=== PATIENT | male | born 1935 | race Caucasian/White ===

== ENCOUNTER 2018-05-15 11:56 | Inpatient (IN) ==
[2018-05-15] MEDS ORDERED: Morphine Inj 4 MG/ML Vial IV.PUSH ONE (12:10)
[2018-05-15] MEDS ORDERED: Sodium Chlor 0.9% Inj 500 ML IV.SIG ONE (12:10)
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
[2018-05-15 12:46] LABS: Baso % (Auto) 0.8 % (0.0-2.0); Eos # (Auto) 0.3 th/mm3 (0.0-0.4); Eos % (Auto) 5.6 % (0.0-4.0); Hematocrit 40.3 % (39.0-51.0); Hemoglobin 13.6 gm/dL (13.0-17.0); Lymph # (Auto) 1.2 th/mm3 (1.0-4.8); Lymph % (Auto) 21.6 % (9.0-44.0); Mean Corpuscular HGB Conc 33.8 % (32.0-36.0); Mean Corpuscular Volume 94.5 fL (80.0-100.0); Mean Platelet Volume 9.9 fL (7.0-11.0); Mono # (Auto) 0.6 th/mm3 (0.0-0.9); Mono % (Auto) 9.9 % (0.0-8.0); Neut # (Auto) 3.5 th/mm3 (1.8-7.7); Neut % (Auto) 62.1 % (16.0-70.0); Platelet Count 168 th/mm3 (150-450); Red Blood Count 4.26 mil/mm3 (4.50-5.90); Red Cell Distribution Width 12.7 % (11.6-17.2); White Blood Count 5.7 th/mm3 (4.0-11.0)
[2018-05-15 12:53] LABS: Activated Partial Thrombo Time 21.5 sec (23.4-31.7); Prothrombin Time 10.3 sec (9.8-11.6)
--- NOTE | 2018-05-15 13:04 | XR ---
EXAM DATE: 05/15/2018 1:01 PM EST AGE/SEX: 83 years / Male INDICATIONS: Patient fell today. CLINICAL DATA: This is the patient's initial encounter. Patient reports that signs and symptoms have been present for 1 day and indicates a pain score of 10/10. MEDICAL/SURGICAL HISTORY: . Hypertension. Kidney disease. AAA. Prostate caner. TIA. Gallbladder disease. Appendectomy. Cholecystectomy. Pacemaker. Bilateral knee replacement. Cervical spine. . Joan endectomy. Cholecystectomy. Pacemaker. Bilateral knee replacement. Cervical spine . COMPARISON: [facility], CHEST 1V SINGLE AP, 04/14/2018. . FINDINGS: Spine view of the chest demonstrates a dual lead cardiac pacer. Heart size appears normal with stable tortuosity of the thoracic aorta. Lungs are clear. Osseous structures demonstrate degenerative choi e. CONCLUSION: The lungs are clear. Electronically signed by: Marycarmen Lan MD Board Certified Radiologist 05/15/2018 1:03 PM EST
[2018-05-15 13:13] LABS: Alanine Aminotransferase 26 U/L (12-78); Albumin 3.5 g/dL (3.4-5.0); Alkaline Phosphatase 56 U/L (45-117); Anion Gap 8 meq/L (5-15); Blood Urea Nitrogen 28 mg/dL (7-18); Calcium 8.7 mg/dL (8.5-10.1); Carbon Dioxide 24.3 meq/L (21.0-32.0); Chloride 106 meq/L (98-107); Glomerular Filtration Rate 41 mL/min (>89); Glucose,Random 94 mg/dL (74-106); Sodium 138 meq/L (136-145); Thyroid Stimulating Hormone 0.951 uIU/mL (0.358-3.740); Total Protein 6.8 g/dL (6.4-8.2)
[2018-05-15 13:14] LABS: Aspartate Aminotransferase 32 U/L (15-37); Creatine Kinase 113 U/L (39-308); Magnesium 2.1 mg/dL (1.5-2.5); Potassium 4.6 meq/L (3.5-5.1)
--- NOTE | 2018-05-15 13:21 | CT ---
EXAM DATE: 05/15/2018 1:17 PM EST AGE/SEX: 83 years / Male INDICATIONS: Trauma; fall. CLINICAL DATA: This is the patient's initial encounter. Patient reports that signs and symptoms have been present for 1 day and indicates a pain score of 3/10. MEDICAL/SURGICAL HISTORY: Transient ischemic attack. Hypertension. Fusion, cervical. RADIATION DOSE: 33.58 CTDI (mGy) COMPARISON: [facility], CT HEAD W/O CONTRAST, 04/14/2018. C, CT BRAIN W/O CONTRAST, 10/10/2017. . TECHNIQUE: CT of the head without contrast. Using automated exposure control and adjustment of the mA and/or kV according to patient size, radiation dose was kept as low as reasonably achievable to ob tain optimal diagnostic quality images. DICOM format image data is available electronically for revi ew and comparison. FINDINGS: Cerebrum: The ventricles are normal for age. No evidence of midline shift, mass lesion, hemorrhage or acute infarction. No extraaxial fluid collections are seen. Posterior Fossa: The cerebellum and brainstem are intact. The 4th ventricle is midline. The cerebe llopontine angle is unremarkable. Extracranial: The visualized portion of the orbits is intact. Skull: The calvaria is intact. No evidence of skull fracture. CONCLUSION: 1. Negative CT Head non contrast. . Electronically signed by: Marycarmen Lan MD Board Certified Radiologist 05/15/2018 1:20 PM EST
--- NOTE | 2018-05-15 13:22 | XR ---
EXAM DATE: 05/15/2018 1:03 PM EST AGE/SEX: 83 years / Male INDICATIONS: Patient fell today. CLINICAL DATA: This is the patient's initial encounter. Patient reports that signs and symptoms have been present for 1 day and indicates a pain score of 10/10. MEDICAL/SURGICAL HISTORY: . Hypertension. Kidney disease. AAA. Prostate caner. TIA. Gallbladder disease. Appendectomy. Cholecystectomy. Pacemaker. Bilateral knee replacement. Cervical spine. . Joan endectomy. Cholecystectomy. Pacemaker. Bilateral knee replacement. Cervical spine . COMPARISON: [facility], XR HIP W/ AP PELVIS, BILATERAL, 02/25/2018. . FINDINGS: Multiple views of the right femur demonstrate a comminuted fracture through the trochanter. This appe ars nondisplaced. Bones are osteopenic. Radiopaque beads identified within the prostate and intact to arie right knee prosthesis. No additional fractures are seen. CONCLUSION: Nondisplaced comminuted right intertrochanteric fracture. Electronically signed by: Marycarmen Lan MD Board Certified Radiologist 05/15/2018 1:21 PM EST
--- NOTE | 2018-05-15 13:24 | XR ---
EXAM DATE: 05/15/2018 1:05 PM EST AGE/SEX: 83 years / Male INDICATIONS: Hypertension. Kidney disease. AAA. Prostate caner. TIA. Gallbladder disease. Appendecto my. Cholecystectomy. Pacemaker. Bilateral knee replacement. Cervical spine. . Appendectomy. Cholecyst ectomy. Pacemaker. Bilateral knee replacement. Cervical spine CLINICAL DATA: This is the patient's initial encounter. Patient reports that signs and symptoms have been present for 1 day and indicates a pain score of 10/10. MEDICAL/SURGICAL HISTORY: . . COMPARISON: [facility], FEMUR RIGHT 2V, 05/15/2018. [facility], XR HIP W/ AP PELVIS, BILATERAL, 02/25/2018. [facility], CT ABDOMEN W/O CONTRAST, 08/08/2016. . FINDINGS: Single view of the pelvis demonstrates a comminuted nondisplaced fracture of the right intertrochante padma region. Bones are osteopenic. Radial opaque beads overlie the prostate. Vascular graft material i s seen within the common iliac arteries and aorta. CONCLUSION: Nondisplaced comminuted fracture involving the right intertrochanteric region. Electronically signed by: Marycarmen Lan MD Board Certified Radiologist 05/15/2018 1:22 PM EST
--- NOTE | 2018-05-15 13:27 | CT ---
EXAM DATE: 05/15/2018 1:22 PM EST AGE/SEX: 83 years / Male INDICATIONS: Trauma; fall, neck pain. CLINICAL DATA: This is the patient's initial encounter. Patient reports that signs and symptoms have been present for 1 day and indicates a pain score of 4/10. MEDICAL/SURGICAL HISTORY: Transient ischemic attack. Hypertension. Fusion, cervical. Pacemake r. RADIATION DOSE: 15.46 CTDI (mGy) COMPARISON: [facility], CT CERVICAL SPINE W/O CONTRAST, 10/10/2017. [facility], MR CERVICAL SPINE W AND W/O CO NTRAST, 05/23/2014. . TECHNIQUE: Contiguous axial images were obtained using helical multirow detector technique. The vol umetric data was post-processed with multiplanar reconstruction in oblique axial, sagittal, and coron al planes. Using automated exposure control and adjustment of the mA and/or kV according to patient s ize, radiation dose was kept as low as reasonably achievable to obtain optimal diagnostic quality barbra ges. DICOM format image data is available electronically for review and comparison. FINDINGS: Vertebrae: Vertebral bodies demonstrate no evidence of fracture or dislocation. Stable appearance of fixation hardware anteriorly at C4/C5 with osseous fusion seen from C2 through C7. Severe degenerati ve disc change at C7/T1 and T1/T2. Alignment: Normal. No subluxation. Severe uncovertebral joint hypertrophy and facet degenerative changes are seen throughout the cervica l spine with multiple levels of significant osseous neuroforaminal narrowing. No visible disc protrus ion. Soft tissues are normal. CONCLUSION: 1. No evidence of fracture. 2. 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 Electronically signed by: Marycarmen Lan MD Board Certified Radiologist 05/15/2018 1:26 PM EST
[2018-05-15] MEDS ORDERED: Bisacodyl 10 MG Supp RECTAL PRN (14:05)
--- NOTE | 2018-05-15 14:41 | P.HPIM ---
History of Present Illness Chief Complaint: Hip pain History of Present Illness: 83-year-old gentleman brought to the emergency room status post fall today with injury to right hip. Patient states he was in his normal state of health about to go out with his and ambulating through the living room got dizzy and fell, hitting his head on the edge of the coffee table. He states he has frequent episodes of dizziness, there is no loss of consciousness, he was unable to stand due to severe right hip pain. Patient was found in the emergency room to have a right hip intratrochanteric fracture. He denies recent illness nausea vomiting fever chills shortness of breath chest pain. PMhx: Hypertension, dyslipidemia, atrial fibrillation, sick sinus syndrome, stroke, prostate cancer, severe degenerative disc disease with chronic back pain , AAA, CKD, states takes divalproex for nite terrors PSXhx: Angiographic repair of abdominal aortic aneurysm, permanent pacemaker, bilateral knee replacement, cholecystectomy, cervical spine SOChx: Denies tobacco, denies alcohol, lives at home with , ambulates with walker FAMhx: Denies premature cardiac disease stroke or cancer Inpatient Certification Inpatient Certification: I certify that the inpatient services were ordered in accordance with Medicare regulations governing the order. This includes certification that hospital inpatient services are reasonable and necessary and in the case of services not specified as inpatient-only under 42 CFR 419.22(n), that they are appropriately provided as inpatient services in accordance to with the 2-midnight benchmark under 43 CFR 412.3(e) Estimated Total Length of Stay (Days): 2 Plans for Post Hospital Care: Other acute care hospital Review of Systems Review of Systems: all other systems reviewed are negative [facility] Medical History Medical History Aortic aneurysm (Acute) Hypertension (Acute) Kidney disease (Acute) Pacemaker (Acute) Prostate cancer (Acute) TIA (transient ischemic attack) (Acute) Surgical History Surgical History H/O neck surgery (Acute) Family History Family History Mother Unknown cause of morbidity or mortality Father Unknown cause of morbidity or mortality Social History Social History Substance History: No History of Abuse Second Hand Smoke Exposure: No Smoking Status: Never smoker How Often Do You Have a Drink Containing Alcohol: Never Recent Travel in [place] within the Last 8 Weeks: No Recent Out of Country Travel within the Last 8 Weeks: No Immunization History Tetanus Immunization: <5 Years Medications and Allergies Allergies Allergy/AdvReac Type Severity Reaction Status Date / Time No Known Allergies Allergy Verified 05/15/18 12:03 Home Medications Medication Instructions Recorded Confirmed Type Adults Multivitamin 1 tab PO DAILY 01/07/18 05/15/18 History apixaban [Eliquis] 2.5 mg PO BID 01/07/18 05/15/18 History benazepril 5 mg PO DAILY 01/07/18 05/15/18 History divalproex 250 mg PO DAILY 01/07/18 05/15/18 History donepezil 10 mg PO HS 01/07/18 05/15/18 History hydrocodone-acetaminophen 1 tab PO BID PRN 01/07/18 05/15/18 History cholecalciferol (vitamin D3) 2,000 unit PO DAILY 02/03/18 05/15/18 History [Vitamin D3] clonazepam 0.5 mg PO HS 02/03/18 05/15/18 History Active Medications: Active Medications Acetaminophen (Tylenol) 650 mg PO Q4H PRN PRN Reason: Temp > 100.4 Hydrocodone Bitart/Acetaminophen ([place] 7.5/325) 1 tab PO BID PRN PRN Reason: Chronic Pain 6-10 Al Hydroxide/Mg Hydroxide (Milk Of Magnesia Liq) 30 ml PO Q12H PRN PRN Reason: Mild Constipation Bisacodyl (Dulcolax Supp) 10 mg RECTAL DAILY PRN PRN Reason: SEVERE CONSITIPATION Clonazepam (Klonopin) 0.5 mg PO HS [facility] Divalproex Sodium (Depakote Er) 250 mg PO DAILY [facility] Lactulose (Lactulose Liq) 30 ml PO DAILY PRN PRN Reason: SEVERE CONSITIPATION Morphine Sulfate (Morphine Inj) 2 mg IV.PUSH Q3H PRN PRN Reason: PAIN 1-10 AND/OR FEVER >101F Non-Formulary Medication (Benazepril) 5 mg PO DAILY [facility] Non-Formulary Medication (Cholecalciferol (Vitamin D3) [Vitamin D3]) 2,000 unit PO DAILY [facility] Non-Formulary Medication (Donepezil [Donepezil]) 10 mg PO HS [facility] Non-Formulary Medication (Adults Multivitamin) 1 tab PO DAILY [facility] Ondansetron HCl (Zofran Inj) 4 mg IV.PUSH Q6H PRN PRN Reason: NAUSEA OR VOMITING Senna/Docusate Sodium (Salma-Colace) 1 tab PO BID [facility] Sennosides (Senokot) 17.2 mg PO Q12H PRN PRN Reason: Moderate Constipation Sodium Chloride (Ns Flush) 2 ml IV.FLUSH BID [facility] Sodium Chloride (Ns Flush) 2 ml IV.FLUSH PRN PRN PRN Reason: FLUSH AFTER USING IV ACCESS Physical Exam Vital signs: Vital Signs 05/15/18 12:03 Temperature 98.0 F Pulse Rate 82 Respiratory Rate 20 Blood Pressure 131/75 Pulse Oximetry 97 Intake & Output 05/14/18 05/15/18 05/15/18 18:59 06:59 18:59 Intake Total 500 / 500 Balance 500 / 500 Weight 61.235 kg Intake: IV 500 / 500 NS Inj 500 ML @ Wide Open IV. 500 / 500 SIG BOLUS ONE Rx#:[id number] Narrative: GEN well-developed well-nourished frail appearing 83-year-old white male awake alert oriented to person time and place, pleasant in no acute distress HEENT normocephalic atraumatic, other than mild abrasion to right inner ear, pupils equal reactive, sclerae anicteric, extraocular motion intact, mucosa is dry, posterior pharynx no exudate, no other gum lip dental lesions noted NECK supple no JVD trachea midline thyroid smooth not enlarged ANT CHEST WALL without mass or tenderness to palpation permanent pacemaker in place without fluctuance or tenderness HEART S1-S2 regular without murmur gallops or clicks, heart sounds are distant LUNGS clear to auscultation without wheeze rales or rhonchi, full symmetric expansion BACK exam is no CVA tenderness or mass ABDOMEN soft nondistended positive bowel sounds no guarding rebound rigidity LYMPH NODES no cervical, axillary or inguinal adenopathy noted EXTREMITIES no clubbing cyanosis or significant edema, peripheral pulses palpable +2, right lower extremity shortened, right hip severe tenderness to palpation NEUROLOGIC cranial nerves II through XII appear grossly intact, unable to examine right lower extremity due to severe pain, moving left lower extremity with 4 out of 5 strength, no clonus rigidity SKIN warm and dry with good turgor, no other rash or sores noted Results Labs CBC & Chem 7: 05/15/18 12:21 05/15/18 12:21 Imaging Impressions Cervical Spine CT 05/15/18 12:10 CONCLUSION: 1. No evidence of fracture. 2. 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 Chest X-Ray 05/15/18 12:10 CONCLUSION: The lungs are clear. Femur X-Ray 05/15/18 12:10 CONCLUSION: Nondisplaced comminuted right intertrochanteric fracture. Head CT 05/15/18 12:10 CONCLUSION: 1. Negative CT Head non contrast. . Pelvis X-Ray 05/15/18 12:10 CONCLUSION: Nondisplaced comminuted fracture involving the right intertrochanteric region. Caprini VTE Risk Assessment Caprini VTE Risk Assessment: Moderate/High Risk (score >= 2) Caprini Risk Assessment Model: Point Value = 1 Point Value = 2 Point Value = 3 Point Value = 5 Age 41-60 Minor surgery BMI > 25 kg/m2 Swollen legs Varicose veins or History of unexplained or recurrent spontaneous Oral contraceptives or hormone replacement Sepsis (< 1 month) Serious lung disease, including pneumonia (< 1 month) Abnormal pulmonary function Acute myocardial infarction Congestive heart failure (< 1 month) History of inflammatory bowel disease Medical patient at bed rest Age 61-74 Arthroscopic surgery Major open surgery (> 45 min) Laparoscopic surgery (> 45 min) Malignancy Confined to bed (> 72 hours) Immobilizing plaster cast Central venous access Age >= 75 History of VTE Family history of VTE Factor V Leiden Prothrombin [id number] Lupus anticoagulant Anticardiolipin antibodies Elevated serum homocysteine Heparin-induced thrombocytopenia Other congenital or acquired thrombophilia Stroke (< 1 month) Elective arthroplasty Hip, pelvis, or leg fracture Acute spinal cord injury (< 1 month) Prophylaxis Regimen: Total Risk Factor Score Risk Level Prophylaxis Regimen 0-1 Low Early ambulation 2 Moderate Order ONE of the following: *Sequential Compression Device (SCD) *Heparin 5000 units SQ BID 3-4 Higher Order ONE of the following medications: *Heparin 5000 units SQ TID *Enoxaparin/Lovenox 40 mg SQ daily (WT < 150 kg, CrCl > 30 mL/min) *Enoxaparin/Lovenox 30 mg SQ daily (WT < 150 kg, CrCl > 10-29 mL/min) *Enoxaparin/Lovenox 30 mg SQ BID (WT < 150 kg, CrCl > 30 mL/min) AND/OR *Sequential Compression Device (SCD) 5 or more Highest Order ONE of the following medications: *Heparin 5000 units SQ TID (Preferred with Epidurals) *Enoxaparin/Lovenox 40 mg SQ daily (WT < 150 kg, CrCl > 30 mL/min) *Enoxaparin/Lovenox 30 mg SQ daily (WT < 150 kg, CrCl > 10-29 mL/min) *Enoxaparin/Lovenox 30 mg SQ BID (WT < 150 kg, CrCl > 30 mL/min) AND *Sequential Compression Device (SCD) Assessment and Plan Plan FALL w dizziness - possible orthostatic, gentle fluids and monitor pressures R INTERTROCHANTERIC FX - pain control, ortho consult ,hold eliquis, AFIB w SSS and PPM - hold eliquis HTN uncontrolled due to pain - cont home meds CKD III - stable DYSLIPIDEMIA CHRONIC BACK PAIN w ddd - cont pain contrl fu w ortho MCI mild on aricept dvt prophylaxis - scd dispo - to rehab when stable.
[2018-05-15] MEDS: Senna/Docusate Sodium 8.6/50 MG Tablet PO SCH (21:00)
[2018-05-15] MEDS: clonazePAM 0.5 MG Tablet PO SCH (23:54)
[2018-05-16] MEDS: Lisinopril 5 MG Tablet PO SCH (00:32)
[2018-05-16] MEDS ORDERED: Chlorhexidine Gluconate 2% 1 Pack (2 Cloths) TOPICAL ONE (01:57)
[2018-05-16] MEDS ORDERED: Sodium Chlor 0.9% Inj 500 ML IV.SIG SCH (02:00)
[2018-05-16] MEDS: Morphine Sulfate Inj 2 MG/ML Vial IV.PUSH PRN ×2 (02:40→20:10)
[2018-05-16 06:10] LABS: Activated Partial Thrombo Time 28.6 sec (23.4-31.7); INR 1.1 Ratio; Prothrombin Time 10.7 sec (9.8-11.6)
--- NOTE | 2018-05-16 07:50 | P.CONOP ---
[facility] Orthopedics Consult Note - [facility] Consult date: 05/16/18 Chief complaint: Right hip fracture, dizziness Narrative: The patient is a 83-year-old male with multiple medical problems. He lives with his . He became dizzy yesterday resulting in a fall hitting his right hip and his head. He is brought to [facility] where x-rays revealed intertrochanteric fracture of the right hip. CT of the head did were not reveal any major abnormality. He was admitted to the medical service. For his cardiac condition he is on Eliquis. The last dose was Thursday night. Patient denies problems with the upper extremities or left lower extremity. He has ongoing pain in the right hip. Review of Systems All other systems reviewed negative except as stated in [facility] PMFSH - History History Provided By: Patient, Family Member - Medical History Medical History: Medical History (Last Reviewed 05/16/18 @ 07:46 by Papo Cantu MD) Aortic aneurysm Hypertension Kidney disease Pacemaker Prostate cancer TIA (transient ischemic attack) - Surgical History Surgical History: Surgical History (Last Reviewed 05/16/18 @ 07:46 by Papo Cantu MD) H/O neck surgery - Family History Family History: Family History (Last Reviewed 05/16/18 @ 07:46 by Papo Cantu MD) Mother Unknown cause of morbidity or mortality Father Unknown cause of morbidity or mortality - Tobacco History Second Hand Smoke Exposure: No Smoking Status: Never smoker - Alcohol History How Often Do You Have a Drink Containing Alcohol: Never - Substance Use History Substance History: No History of Abuse - Travel History Recent Travel in the [facility] Within the Last 8 Weeks: No Recent Travel Out of the Country Within the Last 8 Weeks: No - Immunization History Tetanus Immunization: <5 Years Hx Influenza Vaccine This Season: Yes Medications and Allergies Active Medications: Active Medications Acetaminophen (Tylenol) 650 mg PO Q4H PRN PRN Reason: Temp > 100.4 Hydrocodone Bitart/Acetaminophen ([place] 7.5/325) 1 tab PO BID PRN PRN Reason: Chronic Pain 6-10 Al Hydroxide/Mg Hydroxide (Milk Of Magnesia Liq) 30 ml PO Q12H PRN PRN Reason: Mild Constipation Bisacodyl (Dulcolax Supp) 10 mg RECTAL DAILY PRN PRN Reason: SEVERE CONSITIPATION Clonazepam (Klonopin) 0.5 mg PO HS [facility] Last Admin: 05/15/18 23:54 Dose: Not Given Cyclobenzaprine HCl (Flexeril) 5 mg PO Q8HR [facility] Last Admin: 05/15/18 23:56 Dose: 5 mg Divalproex Sodium (Depakote Er) 250 mg PO DAILY [facility] Donepezil HCl (Aricept) 10 mg PO [facility] Last Admin: 05/15/18 21:00 Dose: Not Given Lactated Ringer's (Lr 1000 Ml Inj) 1,000 mls @ 30 mls/hr IV.SIG .Q24H [facility] Stop: 05/17/18 01:59 Sodium Chloride (Ns Inj) 500 mls @ 30 mls/hr IV.SIG .Q10H [facility] Lactulose (Lactulose Liq) 30 ml PO DAILY PRN PRN Reason: SEVERE CONSITIPATION Lisinopril (Prinivil) 5 mg PO [facility] Last Admin: 05/16/18 00:32 Dose: Not Given Miscellaneous (Pill Splitter) 1 each OTHER UNSCH PRN PRN Reason: SEE LABEL COMMENTS Morphine Sulfate (Morphine Inj) 2 mg IV.PUSH Q3H PRN PRN Reason: PAIN 1-10 AND/OR FEVER >101F Last Admin: 05/16/18 02:40 Dose: 2 mg Multivitamins (Theragran) 1 tab PO DAILY [facility] Ondansetron HCl (Zofran Inj) 4 mg IV.PUSH Q6H PRN PRN Reason: NAUSEA OR VOMITING Senna/Docusate Sodium (Salma-Colace) 1 tab PO BID [facility] Last Admin: 05/15/18 21:00 Dose: Not Given Sennosides (Senokot) 17.2 mg PO Q12H PRN PRN Reason: Moderate Constipation Sodium Chloride (Ns Flush) 2 ml IV.FLUSH BID [facility] Last Admin: 05/15/18 21:00 Dose: 2 ml Sodium Chloride (Ns Flush) 2 ml IV.FLUSH PRN PRN PRN Reason: FLUSH AFTER USING IV ACCESS Vitamin D (Vitamin D3) 2,000 unit PO DAILY [facility] Last Admin: 05/15/18 15:37 Dose: Not Given Allergies Allergy/AdvReac Type Severity Reaction Status Date / Time No Known Allergies Allergy Verified 05/15/18 12:03 Home Medications Medication Instructions Recorded Confirmed Type Adults Multivitamin 1 tab PO DAILY 01/07/18 05/15/18 History apixaban [Eliquis] 2.5 mg PO BID 01/07/18 05/15/18 History benazepril 5 mg PO DAILY 01/07/18 05/15/18 History divalproex 250 mg PO DAILY 01/07/18 05/15/18 History donepezil 10 mg PO HS 01/07/18 05/15/18 History hydrocodone-acetaminophen 1 tab PO BID PRN 01/07/18 05/15/18 History cholecalciferol (vitamin D3) 2,000 unit PO DAILY 02/03/18 05/15/18 History [Vitamin D3] clonazepam 0.5 mg PO HS 02/03/18 05/15/18 History Exam Vital signs: Vital Signs 05/15/18 12:03 05/15/18 14:00 05/15/18 15:41 Temperature 98.0 F Pulse Rate 82 66 60 Respiratory Rate 20 18 18 Blood Pressure 131/75 195/85 H 132/88 Pulse Oximetry 97 96 97 05/15/18 18:08 05/15/18 19:35 05/15/18 23:30 Temperature 98.7 F 100.4 F H 98.7 F Pulse Rate 71 67 60 Respiratory Rate 16 19 18 Blood Pressure 173/78 H 155/74 H 186/80 H Pulse Oximetry 91 L 94 L 92 L 05/16/18 02:24 05/16/18 04:45 Temperature 97.3 F L 97.5 F L Pulse Rate 63 60 Respiratory Rate 19 18 Blood Pressure 155/65 H 169/71 H Pulse Oximetry 98 Intake & Output 05/15/18 05/16/18 05/16/18 18:59 06:59 18:59 Intake Total 500 / 500 60 / 60 Output Total 200 / 200 Balance 500 / 500 -140 / -140 Weight 61.235 kg 61.2 kg Intake: IV 500 / 500 NS Inj 500 ML @ Wide Open IV. 500 / 500 SIG BOLUS ONE Rx#:[id number] Oral 60 / 60 Output: Urine 200 / 200 Other: Post Void Residual 250 Date of Last Bowel Movement 05/14/18 # Bowel Movements 0 Narrative: The patient's is at the bedside He is alert oriented appropriate with mild lethargy Bilateral upper extremities intact Left lower extremity nontender throughout Right lower extremity is shortened and externally rotated He has tenderness about the right hip Right knee and ankle are nontender Bilateral calves are soft with a negative Homans sign He has good distal capillary refill Integument examinations intact He is able to slightly flex and extend his toes He reports sensation intact in his toes Results - Labs Result Diagrams: 05/15/18 12:21 05/15/18 12:21 Labs: Laboratory Results - last 24 hr 05/15/18 05/15/18 05/15/18 12:21 12:21 12:21 WBC 5.7 RBC 4.26 L Hgb 13.6 Hct 40.3 MCV 94.5 MCH 32.0 MCHC 33.8 RDW 12.7 Plt Count 168 MPV 9.9 Neut % (Auto) 62.1 Lymph % (Auto) 21.6 [place] % (Auto) 9.9 H Eos % (Auto) 5.6 H Baso % (Auto) 0.8 Neut # (Auto) 3.5 Lymph # (Auto) 1.2 [place] # (Auto) 0.6 Eos # (Auto) 0.3 Baso # (Auto) 0.0 WBC Differential . Differential Comment Auto diff final PT 10.3 INR 1.0 APTT 21.5 L Sodium 138 Potassium 4.6 Chloride 106 Carbon Dioxide 24.3 Anion Gap 8 BUN 28 H Creatinine 1.60 H Estimated GFR 41 L Random Glucose 94 Calcium 8.7 Magnesium 2.1 Total Bilirubin 0.5 AST 32 ALT 26 Alkaline Phosphatase 56 Total Creatine Kinase 113 CK-MB (CK-2) 2.0 Troponin I Less than 0.02 L Total Protein 6.8 Albumin 3.5 TSH 0.951 05/16/18 05:47 WBC RBC Hgb Hct MCV MCH MCHC RDW Plt Count MPV Neut % (Auto) Lymph % (Auto) [place] % (Auto) Eos % (Auto) Baso % (Auto) Neut # (Auto) Lymph # (Auto) [place] # (Auto) Eos # (Auto) Baso # (Auto) WBC Differential Differential Comment PT 10.7 INR 1.1 APTT 28.6 D Sodium Potassium Chloride Carbon Dioxide Anion Gap BUN Creatinine Estimated GFR Random Glucose Calcium Magnesium Total Bilirubin AST ALT Alkaline Phosphatase Total Creatine Kinase CK-MB (CK-2) Troponin I Total Protein Albumin TSH - Diagnostic results Imaging: Impressions Cervical Spine CT 05/15/18 12:10 CONCLUSION: 1. No evidence of fracture. 2. 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 Chest X-Ray 05/15/18 12:10 CONCLUSION: The lungs are clear. Femur X-Ray 05/15/18 12:10 CONCLUSION: Nondisplaced comminuted right intertrochanteric fracture. Head CT 05/15/18 12:10 CONCLUSION: 1. Negative CT Head non contrast. . Pelvis X-Ray 05/15/18 12:10 CONCLUSION: Nondisplaced comminuted fracture involving the right intertrochanteric region. Assessment and Plan - Problem List (1) Closed intertrochanteric fracture of right femur Code(s): S72.141A - Displaced intertrochanteric fracture of right femur, initial encounter for closed fracture Status: Acute Qualifiers: Encounter type: initial encounter Fracture alignment: nondisplaced Qualified Code(s): S72.144A - Nondisplaced intertrochanteric fracture of right femur, initial encounter for closed fracture Plan: His condition was discussed and the options of treatment were discussed. His fracture pattern is unstable intertrochanteric fracture. Therefore, recommend open reduction internal fixation. The options of internal fixation reviewed. The recommendation is intramedullary rodding with a trochanteric nail. The patient's last dose of Eliquis was on Thursday night. He may have a slightly increased risk of bleeding with pressing on with surgery today but it has already been a day and a half and he probably is having internal bleeding at the fracture site at any rate. Therefore, recommend pressing on with open reduction internal fixation at this time. The possible need for blood transfusion was discussed. The risk benefits and alternatives of treatment were thoroughly discussed. Including discussion was the risk of infection, injury to nerves blood vessel need for blood transfusion anesthetic complication medical complications and unforeseen possible complications. We also discussed the possibility mechanical complications and need for revision surgery. All of his questions and his 's questions were answered. They wished to press on with surgery. A detailed informed consent was obtained. I also will request a qualified nurse practitioner to assist in the operating room. A mid level provider in my office, nurse practitioner or PA, may see this patient on a follow up basis and continue to implement the plan including: starting or adjusting medications, injections of muscle, tendons, bursa or joints, cast application, orthotic or brace application, physical therapy, further radiographic studies including X-ray, MRI, CT, ultrasound or bone scan , vascular studies, neurological studies, or other specialist consultations, and proceeding with surgical management as appropriate.
[2018-05-16] MEDS ORDERED: Lisinopril 5 MG Tablet PO SCH (09:00)
[2018-05-16] MEDS ORDERED: Post-op Orders (for Pharmacy) OTHER STA (11:08)
--- NOTE | 2018-05-16 11:10 | XR ---
EXAM DATE: 05/16/2018 11:07 AM EST AGE/SEX: 83 years / Male INDICATIONS: ORIF RIGHT HIP. CLINICAL DATA: This is the patient's initial encounter. Patient reports that signs and symptoms have been present for 1 day and indicates a pain score of Nonresponsive. MEDICAL/SURGICAL HISTORY: Non-responsive. Non-responsive. COMPARISON: No prior exams available for comparison. FINDINGS: 3 views of the right hip demonstrate prior ORIF of a intratrochanteric fracture. The orthopedic hardw are is in excellent position. The alignment is excellent. There is no evidence of complication. CONCLUSION: Excellent alignment of the hip fracture post reduction and hardware placement. Electronically signed by: Cali Leyva MD Board Certified Radiologist 05/16/2018 11:09 AM EST
--- NOTE | 2018-05-16 11:22 | P.OP ---
- Preoperative Diagnosis (1) Closed intertrochanteric fracture of right femur - Postoperative Diagnosis (1) Closed intertrochanteric fracture of right femur Date of procedure: 05/16/18 Procedure: Right hip open reduction internal fixation using Synthes short trochanteric nail Anesthesia: ZOEY Surgeon: Papo Cantu MD Roll Up Operator: Jono Peoples Estimated blood loss (mL): 50 Operation and Findings: The patient was brought the operating room. He is placed under general anesthesia. He was placed on a well-padded fracture table. The right hip was prepped and draped in usual sterile fashion. IV antibiotics were given. Timeout was completed. Fluoroscopy was used to help determine planned incision. Incision made superior and lateral to the greater trochanter. Hemostasis obtained with use electrocautery. The subcuticular subcutaneous and fascial layer were all traversed. The tip of the trochanter was palpated. The guide was used to align the guidepin to the tip of the trochanter and this was advanced and confirmed to be in excellent position AP and lateral plane. We then used the reamer to overreamed this. We selected 11 mm justina. The justina was impacted into place. Overall bony alignment looks very good. Closed reduction at the beginning the operation with traction and rotation of the limb had been performed so the bone was lined up. We now position the hardware into position. We used the outrigger device and a separate incision laterally and drilled another guidepin to the lateral cortex in good position AP and lateral plane. This was then overreamed and 100 mm flange nail was placed locking this through the right first nail. We rotationally lock this then compress the fracture site. We then used the outrigger device for placement of our distal locking screw. We irrigated out. We closed with absorbable suture. [place] on the skin. Steri-Strips applied. The patient was awoken returned to recovery room in stable condition. The business development assistant is an advanced registered nurse practitioner. His skill set was medically necessary for the performance of the operation.
[2018-05-16] MEDS ORDERED: ceFAZolin 2 GM Premix Inj 2 GM/50 ML PIGGYBACK IV.SIG ONE (11:31)
[2018-05-16 12:29] LABS: Bilirubin,Urine Negative (Negative); Clarity,Urine Clear (Clear); Color,Urine Yellow (Yellw/Straw); Glucose,Urine (UA) Negative (Negative); Leukocyte Esterase,Urine Negative (Negative); Mucus,Urine Few /lpf (Occasional); Nitrite,Urine Negative (Negative); Specific Gravity,Urine 1.017 (1.002-1.035)
--- NOTE | 2018-05-16 12:49 | P.PNIM ---
Subjective Interval history: Patient seen and examined this morning. Afebrile vital signs stable. He is status post open reduction internal fixation of his right hip. Currently he is arousable but immediately falls back to sleep. Physical Exam Vital signs: Vital Signs 05/15/18 14:00 05/15/18 15:41 05/15/18 18:08 Temperature 98.7 F Pulse Rate 66 60 71 Respiratory Rate 18 18 16 Blood Pressure 195/85 H 132/88 173/78 H Pulse Oximetry 96 97 91 L 05/15/18 19:35 05/15/18 23:30 05/16/18 02:24 Temperature 100.4 F H 98.7 F 97.3 F L Pulse Rate 67 60 63 Respiratory Rate 19 18 19 Blood Pressure 155/74 H 186/80 H 155/65 H Pulse Oximetry 94 L 92 L 05/16/18 04:45 05/16/18 07:48 05/16/18 11:05 Temperature 97.5 F L 97.1 F L 98 F Pulse Rate 60 59 L 62 Respiratory Rate 18 18 23 Blood Pressure 169/71 H 176/73 H 119/55 L Pulse Oximetry 98 100 97 05/16/18 11:15 05/16/18 11:30 05/16/18 11:45 Temperature 98.2 F Pulse Rate 62 63 66 Respiratory Rate 21 23 17 Blood Pressure 108/54 L 123/59 L 123/72 Pulse Oximetry 99 99 99 05/16/18 12:00 05/16/18 12:44 Temperature 97.4 F L Pulse Rate 66 65 Respiratory Rate 18 18 Blood Pressure 136/64 132/63 Pulse Oximetry 99 98 Intake & Output 05/15/18 05/16/18 05/16/18 18:59 06:59 18:59 Intake Total 500 / 500 60 / 60 600 / 600 Output Total 200 / 200 500 / 500 Balance 500 / 500 -140 / -140 100 / 100 Weight 61.235 kg 61.2 kg Intake: IV 500 / 500 NS Inj 500 ML @ Wide Open IV. 500 / 500 [facility] Rx#:[id number] Oral 60 / 60 Anesthesia Amount 600 / 600 Output: Urine 200 / 200 Estimated Blood Loss 50 / 50 Urine Amount (Catheter) 450 / 450 Straight 450 / 450 Other: Post Void Residual 250 Date of Last Bowel Movement 05/14/18 05/14/18 # Bowel Movements 0 Narrative: GEN: Well-developed, well-nourished elderly male patient. No acute distress. CV: Irregular rate and rhythm without obvious murmurs LUNGS: Clear to auscultation bilaterally. Normal respiratory effort. No wheezes , rales, rhonchi. GI: Soft, nontender, nondistended. No palpable masses. Bowel sounds WNL. EXT: No edema. Ice pack in place against the right hip dressing in place status post open reduction internal fixation NEURO/PSYCH: Afocal. Awake, alert, and oriented x3. Appropriate insight and judgment. - Urinary Catheter Management Straight Cath placed during this visit: no Results - Labs CBC & Chem 7: 05/15/18 12:21 05/15/18 12:21 Laboratory Results - last 24 hr 05/15/18 05/15/18 05/15/18 12:21 12:21 12:21 WBC 5.7 RBC 4.26 L Hgb 13.6 Hct 40.3 MCV 94.5 MCH 32.0 MCHC 33.8 RDW 12.7 Plt Count 168 MPV 9.9 Neut % (Auto) 62.1 Lymph % (Auto) 21.6 [place] % (Auto) 9.9 H Eos % (Auto) 5.6 H Baso % (Auto) 0.8 Neut # (Auto) 3.5 Lymph # (Auto) 1.2 [place] # (Auto) 0.6 Eos # (Auto) 0.3 Baso # (Auto) 0.0 WBC Differential . Differential Comment Auto diff final PT 10.3 INR 1.0 APTT 21.5 L Sodium 138 Potassium 4.6 Chloride 106 Carbon Dioxide 24.3 Anion Gap 8 BUN 28 H Creatinine 1.60 H Estimated GFR 41 L Random Glucose 94 Calcium 8.7 Magnesium 2.1 Total Bilirubin 0.5 AST 32 ALT 26 Alkaline Phosphatase 56 Total Creatine Kinase 113 CK-MB (CK-2) 2.0 Troponin I Less than 0.02 L Total Protein 6.8 Albumin 3.5 TSH 0.951 Urine Color Urine Clarity Urine pH Ur Specific [place] Urine Protein Urine Glucose (UA) Urine Ketones Urine Occult Blood Urine Nitrate Urine Bilirubin Urine Urobilinogen Ur Leukocyte Esterase Urine RBC Urine WBC Urine Mucus Micro UA Comment Ur Microscopic Review Urine Culture Comments Blood Type Antibody Screen 05/16/18 05/16/18 05/16/18 05:47 07:20 12:05 WBC RBC Hgb Hct MCV MCH MCHC RDW Plt Count MPV Neut % (Auto) Lymph % (Auto) [place] % (Auto) Eos % (Auto) Baso % (Auto) Neut # (Auto) Lymph # (Auto) [place] # (Auto) Eos # (Auto) Baso # (Auto) WBC Differential Differential Comment PT 10.7 INR 1.1 APTT 28.6 D Sodium Potassium Chloride Carbon Dioxide Anion Gap BUN Creatinine Estimated GFR Random Glucose Calcium Magnesium Total Bilirubin AST ALT Alkaline Phosphatase Total Creatine Kinase CK-MB (CK-2) Troponin I Total Protein Albumin TSH Urine Color Yellow Urine Clarity Clear Urine pH 5.0 Ur Specific [place] 1.017 Urine Protein Negative Urine Glucose (UA) Negative Urine Ketones Trace H Urine Occult Blood Negative Urine Nitrate Negative Urine Bilirubin Negative Urine Urobilinogen Less than 2 Ur Leukocyte Esterase Negative Urine RBC Less than 1 Urine WBC Less than 1 Urine Mucus Few H Micro UA Comment Cath-culture not ind Ur Microscopic Review Not Reportable Urine Culture Comments Cath-cult not ind Blood Type O Negative Antibody Screen Negative - Imaging Impressions Cervical Spine CT 05/15/18 12:10 CONCLUSION: 1. No evidence of fracture. 2. 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 Chest X-Ray 05/15/18 12:10 CONCLUSION: The lungs are clear. Femur X-Ray 05/15/18 12:10 CONCLUSION: Nondisplaced comminuted right intertrochanteric fracture. Head CT 05/15/18 12:10 CONCLUSION: 1. Negative CT Head non contrast. . Pelvis X-Ray 05/15/18 12:10 CONCLUSION: Nondisplaced comminuted fracture involving the right intertrochanteric region. Hip X-Ray 05/16/18 00:00 CONCLUSION: Excellent alignment of the hip fracture post reduction and hardware placement. Assessment and Plan - Assessment (1) Closed intertrochanteric fracture of right femur Code(s): S72.141A - Displaced intertrochanteric fracture of right femur, initial encounter for closed fracture Status: Acute (2) Syncope Code(s): R55 - Syncope and collapse Status: Acute - Plan FALL w dizziness - possible orthostatic, gentle fluids and monitor pressures R INTERTROCHANTERIC FX - pain control, ortho consult ,hold eliquis, status post open reduction internal fixation on 05/16/18 AFIB w SSS and PPM - hold eliquis HTN uncontrolled due to pain - cont home meds CKD III - stable DYSLIPIDEMIA CHRONIC BACK PAIN w ddd - cont pain contrl fu w ortho MCI mild on aricept dvt prophylaxis - scd dispo - to rehab when stable. Code Status: Full code Discharge Planning: Pending orthopedic clearance likely will require skilled nurse facility versus inpatient rehab (1) Closed intertrochanteric fracture of right femur Qualifiers: Encounter type: initial encounter Fracture alignment: nondisplaced Qualified Code(s): S72.144A - Nondisplaced intertrochanteric fracture of right femur, initial encounter for closed fracture (2) Syncope Qualifiers: Syncope type: unspecified Qualified Code(s): R55 - Syncope and collapse
--- NOTE | 2018-05-16 15:07 | ECG ---
Date Performed: 05/15/2018 Time Performed: 13:21:23 PTAGE: 83 years EKG: ELECTRONIC ATRIAL PACEMAKER LEFT VENTRICULAR HYPERTROPHY AND ST-T CHANGE ABNORMAL ECG Since PREVIOUS TRACING , no significant change noted PREVIOUS TRACIN04/14/2018 11.17.2016 DOCTOR: Grant Alcantar Interpretating Date/Time 05/16/2018 15:06:38
[2018-05-16] MEDS: Senna/Docusate Sodium 8.6/50 MG Tablet PO SCH (15:44)
[2018-05-16] MEDS: Sod Chloride 0.9% Inj 1,000 ML IV.CONT SCH (15:46)
[2018-05-16] MEDS: Divalproex 250 MG ER Tablet PO SCH (18:28)
[2018-05-16] MEDS: ceFAZolin 2 GM Premix Inj 2 GM/50 ML PIGGYBACK IV.SIG SCH (18:55)
[2018-05-16 21:05] LABS: ABG Base Excess -0.3 mmol/L (-2-2); ABG PCO2 35 mmHg (38-42); ABG PO2 81 mmHg (61-120)
[2018-05-16] MEDS ORDERED: Enoxaparin Inj 40 MG/0.4 ML Syringe SQ SCH (23:00)
[2018-05-17] MEDS: Senna/Docusate Sodium 8.6/50 MG Tablet PO SCH ×3 (00:55→22:22)
[2018-05-17] MEDS: Lisinopril 5 MG Tablet PO SCH ×2 (00:55→22:22)
[2018-05-17] MEDS: clonazePAM 0.5 MG Tablet PO SCH (00:58)
[2018-05-17] MEDS: ceFAZolin 2 GM Premix Inj 2 GM/50 ML PIGGYBACK IV.SIG SCH ×2 (01:01→09:55)
[2018-05-17] MEDS ORDERED: Ketorolac Inj 30 MG/ML (IVP) Vial IV.PUSH ONE (03:44)
[2018-05-17] MEDS: Sod Chloride 0.9% Inj 1,000 ML IV.CONT SCH (07:47)
--- NOTE | 2018-05-17 08:12 | P.PNOP ---
Subjective Interval history: Patient lethargic family at bedside Physical Exam Vital signs: Vital Signs 05/16/18 11:05 05/16/18 11:15 05/16/18 11:30 Temperature 98 F Pulse Rate 62 62 63 Respiratory Rate 23 21 23 Blood Pressure 119/55 L 108/54 L 123/59 L Pulse Oximetry 97 99 99 05/16/18 11:45 05/16/18 12:00 05/16/18 12:44 Temperature 98.2 F 97.4 F L Pulse Rate 66 66 65 Respiratory Rate 17 18 18 Blood Pressure 123/72 136/64 132/63 Pulse Oximetry 99 99 98 05/16/18 16:00 05/16/18 19:20 05/17/18 00:15 Temperature 99.7 F H 99.3 F 99.3 F Pulse Rate 71 63 63 Respiratory Rate 18 19 19 Blood Pressure 125/73 161/69 H 120/82 Pulse Oximetry 95 98 97 05/17/18 05:50 Temperature 97.8 F Pulse Rate 60 Respiratory Rate 19 Blood Pressure 136/61 Pulse Oximetry 97 Intake & Output 05/16/18 05/17/18 05/17/18 18:59 06:59 18:59 Intake Total 600 / 600 1160 / 1160 Output Total 500 / 500 Balance 100 / 100 1160 / 1160 Weight 61.1 kg Intake: IV 1100 / 1100 NS Inj 1,000 ML @ 84 mls/hr IV. 1000 / 1000 CONT .[id number] [facility] Rx#:[id number] Ancef 2 GM Premix Inj 2 gm In 100 / 100 50 ml @ 100 mls/hr IV.SIG Q8H [facility] Rx#:[id number] Oral 60 / 60 Anesthesia Amount 600 / 600 Output: Estimated Blood Loss 50 / 50 Urine Amount (Catheter) 450 / 450 Straight 450 / 450 Other: # Urine Diapers 1 Date of Last Bowel Movement 05/14/18 # Bowel Movements 0 Narrative: right hip dressing in place calve soft NVI - Urinary Catheter Management Straight Cath placed during this visit: no Results - Labs CBC & Chem 7: 05/15/18 12:21 05/15/18 12:21 Laboratory Results - last 24 hr 05/16/18 05/16/18 05/16/18 07:20 12:05 20:53 Puncture Site Left radial Patient Temperature 98.6 O2 Saturation 94 ABG pH 7.44 H ABG pCO2 35 L ABG pO2 81 ABG HCO3 23 ABG O2 Content 12.1 ABG Base Excess -0.3 ABG Methemoglobin 1.3 Ronak Test Present Hemoglobin 9.1 L Carboxyhemoglobin 1.5 O2 Delivery Device Nasal cannula Liter Flow 2.00 Critical Value No Urine Color Yellow Urine Clarity Clear Urine pH 5.0 Ur Specific [place] 1.017 Urine Protein Negative Urine Glucose (UA) Negative Urine Ketones Trace H Urine Occult Blood Negative Urine Nitrate Negative Urine Bilirubin Negative Urine Urobilinogen Less than 2 Ur Leukocyte Esterase Negative Urine RBC Less than 1 Urine WBC Less than 1 Urine Mucus Few H Micro UA Comment Cath-culture not ind Ur Microscopic Review Not Reportable Urine Culture Comments Cath-cult not ind Blood Type O Negative Antibody Screen Negative - Imaging Impressions Hip X-Ray 05/16/18 00:00 CONCLUSION: Excellent alignment of the hip fracture post reduction and hardware placement. Assessment and Plan - Problem List (1) Closed intertrochanteric fracture of right femur Code(s): S72.141A - Displaced intertrochanteric fracture of right femur, initial encounter for closed fracture Status: Acute Qualifiers: Encounter type: subsequent encounter Fracture alignment: nondisplaced Qualified Code(s): S72.144A - Nondisplaced intertrochanteric fracture of right femur, initial encounter for closed fracture Plan: POD#1 Right troch Nail Defer medical management of lethargy to medical service Weight bearing as tolerated Currently order Lovenox but Ok to resume Eliquis Monitor A mid level provider in my office, nurse practitioner or PA, may see this patient on a follow up basis and continue to implement the plan including: starting or adjusting medications, injections of muscle, tendons, bursa or joints, cast application, orthotic or brace application, physical therapy, further radiographic studies including X-ray, MRI, CT, ultrasound or bone scan , vascular studies, neurological studies, or other specialist consultations, and proceeding with surgical management as appropriate.
[2018-05-17] MEDS: Divalproex 250 MG ER Tablet PO SCH (09:52)
--- NOTE | 2018-05-17 15:22 | P.PNIM ---
Subjective Interval history: Patient laying down in bed. He is lethargic. Physical Exam Vital signs: Vital Signs 05/16/18 16:00 05/16/18 19:20 05/17/18 00:15 Temperature 99.7 F H 99.3 F 99.3 F Pulse Rate 71 63 63 Respiratory Rate 18 19 Blood Pressure 125/73 161/69 H 120/82 Pulse Oximetry 95 98 97 05/17/18 05:50 05/17/18 08:00 05/17/18 12:00 Temperature 97.8 F 97.6 F 98.4 F Pulse Rate 60 64 64 Respiratory Rate 19 18 20 Blood Pressure 136/61 158/71 H 145/77 H Pulse Oximetry 97 100 99 Intake & Output 05/16/18 05/17/18 05/17/18 18:59 06:59 18:59 Intake Total 600 / 600 1160 / 1160 50 / 50 Output Total 500 / 500 Balance 100 / 100 1160 / 1160 50 / 50 Weight 61.1 kg Intake: IV 1100 / 1100 50 / 50 NS Inj 1,000 ML @ 84 mls/hr IV. 1000 / 1000 CONT .[id number] [facility] Rx#:[id number] Ancef 2 GM Premix Inj 2 gm In 100 / 100 50 / 50 50 ml @ 100 mls/hr IV.SIG Q8H [facility] Rx#:[id number] Oral 60 / 60 Anesthesia Amount 600 / 600 Output: Estimated Blood Loss 50 / 50 Urine Amount (Catheter) 450 / 450 Straight 450 / 450 Other: # Urine Diapers 1 Date of Last Bowel Movement 05/14/18 # Bowel Movements 0 Narrative: General patient laying down in bed. Minimally responsive to my questions and commands. HEENT extraocular movements are intact, clear oropharyngeal mucosa, no JVD Cardiovascular S1-S2 audible, RRR, no murmurs rubs or gallops Respiratory clear to auscultation bilaterally Abdomen soft, nontender, nondistended, normal bowel sounds Extremities patient does move all 4 of his extremities, 2+ distal pulses. Patient does wince in pain during evaluation of his right hip. Neuro patient can move all 4 extremities, sensation appears to be intact bilaterally. Patient is minimally responsive to my questions and commands, he is lethargic. - Urinary Catheter Management Straight Cath placed during this visit: no Results - Labs CBC & Chem 7: 05/15/18 12:21 05/15/18 12:21 Laboratory Results - last 24 hr 05/16/18 20:53 Puncture Site Left radial Patient Temperature 98.6 O2 Saturation 94 ABG pH 7.44 H ABG pCO2 35 L ABG pO2 81 ABG HCO3 23 ABG O2 Content 12.1 ABG Base Excess -0.3 ABG Methemoglobin 1.3 Ronak Test Present Hemoglobin 9.1 L Carboxyhemoglobin 1.5 O2 Delivery Device Nasal cannula Liter Flow 2.00 Critical Value No Assessment and Plan - Assessment (1) Closed intertrochanteric fracture of right femur Code(s): S72.141A - Displaced intertrochanteric fracture of right femur, initial encounter for closed fracture Status: Acute (2) Syncope Code(s): R55 - Syncope and collapse Status: Acute - Plan This patient is an 83-year-old male with a past medical history of hypertension , dyslipidemia, atrial fibrillation on anticoagulation, sick sinus syndrome, documented AAA, chronic kidney disease, chronic back pain. Patient presented after suffering a ground-level fall at home. Acute Encephalopathy As per the nurse the patient has been encephalopathic over the past 2 days. He is lethargic and minimally responsive to my questions and commands. Patient's family is at bedside and state that prior to his admission and shortly after admission the patient was completely alert and oriented. He was receiving p.o. Benadryl as well as morphine and Depakote. As per the patient's he was not taking Depakote prior to admission. Depakote, Klonopin, Benadryl have been stopped. Continue neurochecks CT head ordered. An MRI was ordered yesterday however the patient has a pacemaker and cannot get the MRI. Will hold Lovenox, Eliquis will be started if the CT scan of the head is negative. Ammonia level ordered. Follow-up a.m. labs. IV fluids adjusted to D5 half NS. If the patient's mental status does not improve by tomorrow, neurology will be consulted. Consider NG tube tomorrow if the patient does not have improvement in his encephalopathy. 1. Right intertrochanteric fracture status post right trochanteric nail Patient is postop day 1. Weightbearing as tolerated Continue physical therapy Orthopedics is okay with restarting the patient on Eliquis Eliquis will be restarted today, pending CT scan of the head. PT evaluation pending, patient will likely need physical therapy at a custodial facility. 2. Atrial fibrillation Heart rate under control We will restart Eliquis if CT scan of the head is negative. 3. CKD stage III Serum creatinine is currently at baseline. Continue to monitor kidney function, avoid nephrotoxic agents. 4. Hypertension Blood pressure currently under control. Continue lisinopril, will adjust medications as needed. DVT prophylaxis, patient is currently on Eliquis. (1) Closed intertrochanteric fracture of right femur Qualifiers: Encounter type: subsequent encounter Fracture alignment: nondisplaced Qualified Code(s): S72.144A - Nondisplaced intertrochanteric fracture of right femur, initial encounter for closed fracture (2) Syncope Qualifiers: Syncope type: unspecified Qualified Code(s): R55 - Syncope and collapse
[2018-05-17] MEDS: Dextrose 5%/NaCl 0.45% Inj 1,000 ML IV.CONT SCH (15:51)
--- NOTE | 2018-05-17 18:44 | CT ---
EXAM DATE: 05/17/2018 6:39 PM EST AGE/SEX: 83 years / Male INDICATIONS: Altered mental status. CLINICAL DATA: This is the patient's initial encounter. Patient reports that signs and symptoms have been present for 1 day and indicates a pain score of 0/10. MEDICAL/SURGICAL HISTORY: Hypertension. Cardiovascular disease. Carcinoma, prostatic. Pacemaker. Fusion, cervical. RADIATION DOSE: 34.45 CTDI (mGy) COMPARISON: [facility] [place], 05/15/[place]. . TECHNIQUE: CT of the head without contrast. Using automated exposure control and adjustment of the mA and/or kV according to patient size, radiation dose was kept as low as reasonably achievable to ob tain optimal diagnostic quality images. DICOM format image data is available electronically for revi ew and comparison. FINDINGS: There is motion artifact. Cerebrum: The ventricles are prominent consistent with atrophy. Areas of low-density in the white ma tter. No evidence of midline shift, mass lesion, hemorrhage or acute infarction. No extraaxial fluid collections are seen. Posterior Fossa: The cerebellum and brainstem are intact. The 4th ventricle is midline. The cerebe llopontine angle is unremarkable. Extracranial: The visualized portion of the orbits is intact. Skull: The calvaria is intact. No evidence of skull fracture. CONCLUSION: 1. Cerebral atrophy and chronic ischemic small vessel vasculopathy. 2. No acute intracranial abnormality. . Electronically signed by: Narendra Mendoza MD Board Certified Radiologist 05/17/2018 6:43 PM EST
[2018-05-18 06:28] LABS: Baso % (Auto) 0.6 % (0.0-2.0); Eos # (Auto) 0.7 th/mm3 (0.0-0.4); Eos % (Auto) 10.7 % (0.0-4.0); Hematocrit 23.8 % (39.0-51.0); Lymph # (Auto) 1.1 th/mm3 (1.0-4.8); Mean Corpuscular HGB Conc 33.5 % (32.0-36.0); Mean Corpuscular Hemoglobin 31.5 pg (27.0-34.0); Mean Platelet Volume 9.9 fL (7.0-11.0); Mono # (Auto) 0.6 th/mm3 (0.0-0.9); Mono % (Auto) 9.6 % (0.0-8.0); Neut # (Auto) 4.1 th/mm3 (1.8-7.7); Neut % (Auto) 62.1 % (16.0-70.0); Platelet Count 105 th/mm3 (150-450); Red Blood Count 2.53 mil/mm3 (4.50-5.90); Red Cell Distribution Width 12.9 % (11.6-17.2); White Blood Count 6.6 th/mm3 (4.0-11.0)
[2018-05-18 07:00] LABS: Alanine Aminotransferase 11 U/L (12-78); Albumin 2.6 g/dL (3.4-5.0); Alkaline Phosphatase 43 U/L (45-117); Anion Gap 7 meq/L (5-15); Aspartate Aminotransferase 25 U/L (15-37); Blood Urea Nitrogen 34 mg/dL (7-18); Calcium 9.1 mg/dL (8.5-10.1); Carbon Dioxide 24.8 meq/L (21.0-32.0); Chloride 114 meq/L (98-107); Glomerular Filtration Rate 42 mL/min (>89); Glucose,Random 115 mg/dL (74-106); Magnesium 2.2 mg/dL (1.5-2.5); Potassium 5.4 meq/L (3.5-5.1); Sodium 146 meq/L (136-145); Total Protein 5.5 g/dL (6.4-8.2)
--- NOTE | 2018-05-18 07:45 | P.PNOP ---
Subjective Interval history: Patient resting. Son at bedside. Physical Exam Vital signs: Vital Signs 05/17/18 08:00 05/17/18 12:00 05/17/18 16:00 Temperature 97.6 F 98.4 F 97.9 F Pulse Rate 64 64 60 Respiratory Rate 18 20 22 Blood Pressure 158/71 H 145/77 H 172/72 H Pulse Oximetry 100 99 100 05/17/18 20:00 05/17/18 20:09 05/17/18 23:09 Temperature 97.8 F 97.5 F L Pulse Rate 69 63 Respiratory Rate 18 18 18 Blood Pressure 182/77 H 173/72 H Pulse Oximetry 100 100 05/18/18 03:55 Temperature 97.8 F Pulse Rate 60 Respiratory Rate 18 Blood Pressure 155/67 H Pulse Oximetry 97 Intake & Output 05/17/18 05/18/18 05/18/18 18:59 06:59 18:59 Intake Total 950 / 950 480 / 480 Output Total 200 / 200 Balance 950 / 950 280 / 280 Weight 61.1 kg Intake: IV 950 / 950 NS Inj 1,000 ML @ 84 mls/hr IV. 900 / 900 CONT .[id number] [facility] Rx#:[id number] Ancef 2 GM Premix Inj 2 gm In 50 / 50 50 ml @ 100 mls/hr IV.SIG Q8H [facility] Rx#:[id number] Oral 480 / 480 Output: Urine Amount (Catheter) 200 / 200 Condom 200 / 200 Other: Date of Last Bowel Movement 05/17/18 # Bowel Movements 0 Narrative: Right hip dressing C/D/I ecchymosis noted calves soft - Urinary Catheter Management Straight Cath placed during this visit: no Condom Cath placed during this visit: no Results - Labs CBC & Chem 7: 05/18/18 06:10 05/18/18 06:10 Laboratory Results - last 24 hr 05/17/18 05/18/18 05/18/18 15:58 06:10 06:10 WBC 6.6 RBC 2.53 L Hgb 8.0 L Hct 23.8 L MCV 94.0 MCH 31.5 MCHC 33.5 RDW 12.9 Plt Count 105 L D MPV 9.9 Neut % (Auto) 62.1 Lymph % (Auto) 17.0 [place] % (Auto) 9.6 H Eos % (Auto) 10.7 H Baso % (Auto) 0.6 Neut # (Auto) 4.1 Lymph # (Auto) 1.1 [place] # (Auto) 0.6 Eos # (Auto) 0.7 H Baso # (Auto) 0.0 WBC Differential . Differential Comment Auto diff final Sodium 146 H Potassium 5.4 H Chloride 114 H Carbon Dioxide 24.8 Anion Gap 7 BUN 34 H Creatinine 1.58 H Estimated GFR 42 L Random Glucose 115 H Calcium 9.1 Magnesium 2.2 Total Bilirubin 0.4 AST 25 ALT 11 L Alkaline Phosphatase 43 L Ammonia 17 Total Protein 5.5 L D Albumin 2.6 L - Imaging Impressions Head CT 05/17/ 00:00 CONCLUSION: 1. Cerebral atrophy and chronic ischemic small vessel vasculopathy. 2. No acute intracranial abnormality. . Assessment and Plan - Problem List (1) Closed intertrochanteric fracture of right femur Code(s): S72.141A - Displaced intertrochanteric fracture of right femur, initial encounter for closed fracture Status: Acute Qualifiers: Encounter type: subsequent encounter Fracture alignment: nondisplaced Qualified Code(s): S72.144A - Nondisplaced intertrochanteric fracture of right femur, initial encounter for closed fracture Plan: POD#2 Right troch Nail Medical management Physical therapy - Weight bearing as tolerated Currently order Lovenox but Ok to resume Eliquis D/C planning - anticipating SNF vs Home with C F/U in [address] Cantu or HUGH in office Monitor
[2018-05-18] MEDS: Acetaminophen 325 MG Tablet PO PRN (09:10)
[2018-05-18] MEDS: Senna/Docusate Sodium 8.6/50 MG Tablet PO SCH ×2 (09:26→21:07)
[2018-05-18] MEDS: Dextrose 5%/NaCl 0.45% Inj 1,000 ML IV.CONT SCH ×2 (10:00→22:00)
--- NOTE | 2018-05-18 11:33 | P.PNIM ---
Subjective Interval history: f/u; encephalopathy in no acute distress. still very lethargic. d/w the RN. family at the bedside. Physical Exam Vital signs: Vital Signs 05/17/18 12:00 05/17/18 16:00 05/17/18 20:00 Temperature 98.4 F 97.9 F Pulse Rate 64 60 Respiratory Rate 20 22 18 Blood Pressure 145/77 H 172/72 H Pulse Oximetry 99 100 05/17/18 20:09 05/17/18 23:09 05/18/18 03:55 Temperature 97.8 F 97.5 F L 97.8 F Pulse Rate 69 63 60 Respiratory Rate 18 18 18 Blood Pressure 182/77 H 173/72 H 155/67 H Pulse Oximetry 100 100 97 05/18/18 09:16 Temperature 97.7 F Pulse Rate 60 Respiratory Rate 17 Blood Pressure 147/67 H Pulse Oximetry 98 Intake & Output 05/17/18 05/18/18 05/18/18 18:59 06:59 18:59 Intake Total 950 / 950 480 / 480 1000 / 1000 Output Total 200 / 200 Balance 950 / 950 280 / 280 1000 / 1000 Weight 61.1 kg Intake: IV 950 / 950 1000 / 1000 D5W/1/2 NS Inj 1,000 ML @ 84 1000 / 1000 mls/hr IV.CONT .[id number] [facility] Rx# :[id number] NS Inj 1,000 ML @ 84 mls/hr IV. 900 / 900 CONT .[id number] [facility] Rx#:[id number] Ancef 2 GM Premix Inj 2 gm In 50 / 50 50 ml @ 100 mls/hr IV.SIG Q8H [facility] Rx#:[id number] Oral 480 / 480 Output: Urine Amount (Catheter) 200 / 200 Condom 200 / 200 Other: Date of Last Bowel Movement 05/17/18 # Bowel Movements 0 Constitutional no acute distress Routine Respiratory Exam Present CTA bilaterally Routine Cardiovascular Exam Present RRR Routine Abdominal Exam Present soft Routine Extremities Exam Comments: no pedal edema. Routine Neurological Exam very lethargic. Urinary Catheter Management Straight: Cath placed during this visit: no Condom: Cath placed during this visit: no Results Labs CBC & Chem 7: 05/18/18 06:10 05/18/18 06:10 Imaging Imaging: Impressions Head CT 05/17/18 00:00 CONCLUSION: 1. Cerebral atrophy and chronic ischemic small vessel vasculopathy. 2. No acute intracranial abnormality. . Assessment and Plan (1) Closed intertrochanteric fracture of right femur: Code(s): S72.141A - Displaced intertrochanteric fracture of right femur, initial encounter for closed fracture Status: Acute (2) Syncope: Code(s): R55 - Syncope and collapse Status: Acute Plan A/P Acute Encephalopathy As per the nurse the patient has been encephalopathic over the past 2 days. He is lethargic and minimally responsive to my questions and commands. Patient's family is at bedside and state that prior to his admission and shortly after admission the patient was completely alert and oriented. He was receiving p.o. Benadryl as well as morphine and Depakote. As per the patient's he was not taking Depakote prior to admission. Depakote, Klonopin, Benadryl have been stopped. Continue neurochecks CT head with no acute abnormality. An MRI was ordered yesterday however the patient has a pacemaker and cannot get the MRI. is back on Eliquis. IV fluids adjusted to D5 half NS. consult Neurology. will place NG tube in am if no improvement in his mental condition. 1. Right intertrochanteric fracture status post right trochanteric nail Weightbearing as tolerated Continue physical therapy Orthopedics is okay with restarting the patient on Eliquis . PT evaluation pending, patient will likely need physical therapy at a prison facility. 2. Atrial fibrillation Heart rate under control Eliquis restarted. 3. CKD stage III Serum creatinine is currently at baseline. Continue to monitor kidney function, avoid nephrotoxic agents. 4. Hypertension Blood pressure currently under control. Continue lisinopril, will adjust medications as needed. Discharge Planning: SNF when stable. Progress Note: Quality VTE Deep Vein Thrombosis/Pulmonary Embolism Present on Admission: No _ (1) Closed intertrochanteric fracture of right femur Qualifiers: Encounter type: subsequent encounter Fracture alignment: nondisplaced Fracture healing: Qualified Code(s): S72.144A - Nondisplaced intertrochanteric fracture of right femur, initial encounter for closed fracture (2) Syncope Qualifiers: Encounter type: Syncope type: unspecified Qualified Code(s): R55 - Syncope and collapse
--- NOTE | 2018-05-18 14:48 | P.CONNEU ---
History of Present Illness Service: Neurology Primary Care Provider: Trey Duran MD Chief Complaint: Confusion History of Present Illness: 83-year-old male admitted to 06/02/2018 after having a fall hip fracture. At hip operation postop has been lethargic confused. Family is no symptom to go in and out of alertness. Seen by neurology early 04/2018 syncope. He also the neurologist is having a lot of sleep attacks. 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 In addition to mild fluctuating cognition at times more recently orthostatic hypotension. There is no history of hallucinations. 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 He was on Depakote for spells this medication was recently discontinued. Review of Systems All other systems reviewed negative except as stated in HPI PMFSH - History History Provided By: Patient, Family Member - Medical History Medical History: Medical History (Last Reviewed 05/18/18 @ 07:41 by Yenny Rossi) Aortic aneurysm Hypertension Kidney disease Pacemaker Prostate cancer TIA (transient ischemic attack) - Surgical History Surgical History: Surgical History (Last Reviewed 05/18/18 @ 07:41 by Yenny Rossi) H/O neck surgery - Family History Family History: Family History (Last Reviewed 05/18/18 @ 07:41 by Yenny Rossi) Mother Unknown cause of morbidity or mortality Father Unknown cause of morbidity or mortality - Tobacco History Second Hand Smoke Exposure: No Smoking Status: Never smoker - Alcohol History How Often Do You Have a Drink Containing Alcohol: Never - Substance Use History Substance History: No History of Abuse - Travel History Recent Travel in the [place] Within the Last 8 Weeks: No Recent Travel Out of the Country Within the Last 8 Weeks: No - Immunization History Tetanus Immunization: <5 Years Hx Influenza Vaccine This Season: Yes Medications and Allergies Active Medications: Active Medications Acetaminophen (Tylenol) 650 mg PO Q4H PRN PRN Reason: Temp > 100.4 Last Admin: 05/18/18 09:10 Dose: 650 mg Hydrocodone Bitart/Acetaminophen ([place] 5/325) 1 tab PO Q3H PRN PRN Reason: Pain Scale 3-10 Al Hydroxide/Mg Hydroxide (Milk Of Magnkatia Liq) 30 ml PO Q12H PRN PRN Reason: Mild Constipation Apixaban (Eliquis) 2.5 mg PO BID [facility] Last Admin: 05/18/18 09:10 Dose: 2.5 mg Bisacodyl (Dulcolax Supp) 10 mg RECTAL DAILY PRN PRN Reason: SEVERE CONSITIPATION Cyclobenzaprine HCl (Flexeril) 5 mg PO Q8HR [facility] Last Admin: 05/17/18 14:21 Dose: Not Given Donepezil HCl (Aricept) [address] [facility] Last Admin: 05/17/18 22:28 Dose: 10 mg Enoxaparin Sodium (Lovenox Inj) 40 mg SQ Q24H [facility] Last Admin: 05/17/18 00:57 Dose: 40 mg Sodium Chloride (Ns Inj) 500 mls @ 30 mls/hr IV.SIG .Q10H [facility] Last Admin: 05/16/18 11:01 Dose: Not Given Dextrose/Sodium Chloride (D5w//2 Ns Inj) 1,000 mls @ 84 mls/hr IV.CONT .[id number] [facility] Last Admin: 05/18/18 10:00 Dose: 84 mls/hr Lactulose (Lactulose Liq) 30 ml PO DAILY PRN PRN Reason: SEVERE CONSITIPATION Lisinopril (Prinivil) [address] [facility] Last Admin: 05/17/18 22:22 Dose: 5 mg Miscellaneous (Pill Splitter) 1 each OTHER UNSCH PRN PRN Reason: SEE LABEL COMMENTS Morphine Sulfate (Morphine Inj) 2 mg IV.PUSH Q3H PRN PRN Reason: PAIN 1-10 AND/OR FEVER >101F Last Admin: 05/16/18 20:10 Dose: 2 mg Multivitamins (Theragran) 1 tab PO DAILY [facility] Last Admin: 05/18/18 09:09 Dose: 1 tab Ondansetron HCl (Zofran Inj) 4 mg IV.PUSH Q6H PRN PRN Reason: NAUSEA OR VOMITING Senna/Docusate Sodium (Salma-Colace) 1 tab PO BID [facility] Last Admin: 05/18/18 09:26 Dose: Not Given Sennosides (Senokot) 17.2 mg PO Q12H PRN PRN Reason: Moderate Constipation Sodium Chloride (Ns Flush) 2 ml IV.FLUSH BID [facility] Last Admin: 05/18/18 09:26 Dose: 2 ml Sodium Chloride (Ns Flush) 2 ml IV.FLUSH PRN PRN PRN Reason: FLUSH AFTER USING IV ACCESS Vitamin D (Vitamin D3) 2,000 unit PO DAILY [facility] Last Admin: 05/18/18 09:26 Dose: 2,000 unit Allergies Allergy/AdvReac Type Severity Reaction Status Date / Time No Known Allergies Allergy Verified 05/15/18 12:03 Home Medications Medication Instructions Recorded Confirmed Type Adults Multivitamin 1 tab PO DAILY 01/07/18 05/15/18 History apixaban [Eliquis] 2.5 mg PO BID 01/07/18 05/16/18 History benazepril 10 mg PO DAILY 01/07/18 05/16/18 History divalproex 250 mg PO Q OTHER DAY 01/07/18 05/16/18 History donepezil 10 mg PO HS 01/07/18 05/15/18 History hydrocodone-acetaminophen 1 tab PO BID PRN 01/07/18 05/15/18 History cholecalciferol (vitamin D3) 2,000 unit PO DAILY 02/03/18 05/15/18 History [Vitamin D3] Exam Vital signs: Vital Signs 05/17/18 16:00 05/17/18 20:00 05/17/18 20:09 Temperature 97.9 F 97.8 F Pulse Rate 60 69 Respiratory Rate 22 18 18 Blood Pressure 172/72 H 182/77 H Pulse Oximetry 100 100 05/17/18 23:09 05/18/18 03:55 05/18/18 09:16 Temperature 97.5 F L 97.8 F 97.7 F Pulse Rate 63 60 60 Respiratory Rate 18 18 17 Blood Pressure 173/72 H 155/67 H 147/67 H Pulse Oximetry 100 97 98 05/18/18 11:48 Temperature 97.7 F Pulse Rate 60 Respiratory Rate 17 Blood Pressure 146/67 H Pulse Oximetry 100 Intake & Output 05/17/18 05/18/18 05/18/18 18:59 06:59 18:59 Intake Total 950 / 950 480 / 480 1000 / 1000 Output Total 200 / 200 Balance 950 / 950 280 / 280 1000 / 1000 Weight 61.1 kg Intake: IV 950 / 950 1000 / 1000 D5W/1/2 NS Inj 1,000 ML @ 84 1000 / 1000 mls/hr IV.CONT .[id number] [facility] Rx# :[id number] NS Inj 1,000 ML @ 84 mls/hr IV. 900 / 900 CONT .[id number] [facility] Rx#:[id number] Ancef 2 GM Premix Inj 2 gm In 50 / 50 50 ml @ 100 mls/hr IV.SIG Q8H [facility] Rx#:[id number] Oral 480 / 480 Output: Urine Amount (Catheter) 200 / 200 Condom 200 / 200 Other: Date of Last Bowel Movement 05/17/18 # Bowel Movements 0 Narrative: GENERAL: in NAD, SKIN: Warm and dry. HEAD: Atraumatic. Normocephalic. EYES: Pupils equal and round. ENT: No nasal bleeding or discharge. NECK: Trachea midline. No JVD. CARDIOVASCULAR: Regular rate and rhythm. Pacemaker RESPIRATORY: No accessory muscle use. GASTROINTESTINAL: Abdomen soft, non-tender, nondistended. MUSCULOSKELETAL: Extremities without clubbing, cyanosis, or edema. No obvious deformities. NEUROLOGICAL: Resting mildly arousable partially opens eyes not following no current gaze deviation pupils reactive approximately 3-2 mm, reduced left nasolabial fold, left upper extremity extension right upper extremity flexion, withdrawal left lower extremity reduced in the right lower extremity, no tremors sensory examination limited PSYCHIATRIC: Resting - Constitutional no acute distress - Routine HEENT Exam Head: Present: normocephalic Results - Labs CBC & Chem 7: 05/18/18 06:10 05/18/18 13:16 Labs: Laboratory Results - last 24 hr 05/17/18 05/18/18 05/18/18 15:58 06:10 06:10 WBC 6.6 RBC 2.53 L Hgb 8.0 L Hct 23.8 L MCV 94.0 MCH 31.5 MCHC 33.5 RDW 12.9 Plt Count 105 L D MPV 9.9 Neut % (Auto) 62.1 Lymph % (Auto) 17.0 [place] % (Auto) 9.6 H Eos % (Auto) 10.7 H Baso % (Auto) 0.6 Neut # (Auto) 4.1 Lymph # (Auto) 1.1 [place] # (Auto) 0.6 Eos # (Auto) 0.7 H Baso # (Auto) 0.0 WBC Differential . Differential Comment Auto diff final Sodium 146 H Potassium 5.4 H Chloride 114 H Carbon Dioxide 24.8 Anion Gap 7 BUN 34 H Creatinine 1.58 H Estimated GFR 42 L Random Glucose 115 H Calcium 9.1 Magnesium 2.2 Total Bilirubin 0.4 AST 25 ALT 11 L Alkaline Phosphatase 43 L Ammonia 17 Total Protein 5.5 L D Albumin 2.6 L 05/18/18 13:16 WBC RBC Hgb Hct MCV MCH MCHC RDW Plt Count MPV Neut % (Auto) Lymph % (Auto) [place] % (Auto) Eos % (Auto) Baso % (Auto) Neut # (Auto) Lymph # (Auto) [place] # (Auto) Eos # (Auto) Baso # (Auto) WBC Differential Differential Comment Sodium Potassium 3.9 D Chloride Carbon Dioxide Anion Gap BUN Creatinine Estimated GFR Random Glucose Calcium Magnesium Total Bilirubin AST ALT Alkaline Phosphatase Ammonia Total Protein Albumin - Imaging Impressions Head CT 05/17/18 00:00 CONCLUSION: 1. Cerebral atrophy and chronic ischemic small vessel vasculopathy. 2. No acute intracranial abnormality. . Review/Management - Diagnosis (1) Encephalopathy Code(s): G93.40 - Encephalopathy, unspecified Status: Acute Current Visit: Yes (2) Syncope Code(s): R55 - Syncope and collapse Status: Acute Current Visit: No (3) Closed intertrochanteric fracture of right femur Code(s): S72.141A - Displaced intertrochanteric fracture of right femur, initial encounter for closed fracture Status: Acute Current Visit: Yes - Review/Management Plan: Postop lethargy. Considerations would include stroke versus Lewy body dementia versus seizure versus metabolic/medication related He is on oral anticoagulation therefore stroke would be less likely but possible. Chronic renal insufficiency CT brain no acute lesion Carotid ultrasound 04/2018- EEG 04/2018- for seizures Recommendations Repeat EEG MRI brain contraindicated as he has a pacemaker Avoid sedatives opiates Nutritional support, IV thiamine Obtain repeat follow-up CT brain scan Discussed with patient's family at bedside (2) Syncope Qualifiers: Syncope type: unspecified Qualified Code(s): R55 - Syncope and collapse (3) Closed intertrochanteric fracture of right femur Qualifiers: Encounter type: subsequent encounter Fracture alignment: nondisplaced Qualified Code(s): S72.144A - Nondisplaced intertrochanteric fracture of right femur, initial encounter for closed fracture
--- NOTE | 2018-05-18 17:07 | XR ---
EXAM DATE: 05/18/2018 5:00 PM EST AGE/SEX: 83 years / Male INDICATIONS: Shortness of breath. CLINICAL DATA: This is the patient's subsequent encounter. Patient reports that signs and symptoms h ave been present for 3 days and indicates a pain score of Nonresponsive. MEDICAL/SURGICAL HISTORY: . Hypertension. Cardiovascular disease. Carcinoma, prostatic. . Pac emaker. Fusion, cervical. COMPARISON: C, CHEST 1V SINGLE AP, 05/15/2018. . FINDINGS: A single AP view of the chest demonstrates the lungs to be symmetrically aerated without evidence of mass, infiltrate or effusion. The cardiomediastinal contours are unremarkable. Osseous structures a re intact. A pacing device overlies the left chest. CONCLUSION: No acute cardiopulmonary disease. Electronically signed by: Brant Erickson MD Board Certified Radiologist 05/18/2018 5:06 PM EST
[2018-05-18 18:05] LABS: ABG Base Excess 0.9 mmol/L (-2-2); ABG PCO2 35 mmHg (38-42); ABG PO2 75 mmHg (61-120)
[2018-05-18] MEDS: Lisinopril 5 MG Tablet PO SCH (21:07)
[2018-05-19] MEDS: Acetaminophen 325 MG Tablet PO PRN ×2 (04:22→12:58)
[2018-05-19] MEDS: Dextrose 5%/NaCl 0.45% Inj 1,000 ML IV.CONT SCH (06:15)
[2018-05-19 07:03] LABS: Baso % (Auto) 0.6 % (0.0-2.0); Eos # (Auto) 0.7 th/mm3 (0.0-0.4); Eos % (Auto) 12.5 % (0.0-4.0); Hematocrit 22.4 % (39.0-51.0); Hemoglobin 7.6 gm/dL (13.0-17.0); Mean Corpuscular HGB Conc 33.8 % (32.0-36.0); Mean Corpuscular Hemoglobin 31.2 pg (27.0-34.0); Mean Corpuscular Volume 92.4 fL (80.0-100.0); Mean Platelet Volume 9.9 fL (7.0-11.0); Mono # (Auto) 0.6 th/mm3 (0.0-0.9); Mono % (Auto) 10.1 % (0.0-8.0); Neut # (Auto) 3.5 th/mm3 (1.8-7.7); Neut % (Auto) 59.8 % (16.0-70.0); Platelet Count 117 th/mm3 (150-450); Red Blood Count 2.42 mil/mm3 (4.50-5.90); Red Cell Distribution Width 12.4 % (11.6-17.2); White Blood Count 5.8 th/mm3 (4.0-11.0)
--- NOTE | 2018-05-19 08:27 | P.PNNEU ---
Subjective Subjective Comments: was more lucid overnight and calm. didn't sleep much per son Active Medications: Active Medications Acetaminophen (Tylenol) 650 mg PO Q4H PRN PRN Reason: Temp > 100.4 Last Admin: 05/19/18 04:22 Dose: 650 mg Hydrocodone Bitart/Acetaminophen ([place] 5/325) 1 tab PO Q3H PRN PRN Reason: Pain Scale 3-10 Al Hydroxide/Mg Hydroxide (Milk Of Magnesia Liq) 30 ml PO Q12H PRN PRN Reason: Mild Constipation Apixaban (Eliquis) 2.5 mg PO BID [facility] Last Admin: 05/18/18 21:07 Dose: Not Given Bisacodyl (Dulcolax Supp) 10 mg RECTAL DAILY PRN PRN Reason: SEVERE CONSITIPATION Cyclobenzaprine HCl (Flexeril) 5 mg PO Q8HR [facility] Last Admin: 05/17/18 14:21 Dose: Not Given Donepezil HCl (Aricept) 10 mg PO [facility] Last Admin: 05/18/18 21:07 Dose: Not Given Enoxaparin Sodium (Lovenox Inj) 40 mg SQ Q24H [facility] Last Admin: 05/17/18 00:57 Dose: 40 mg Sodium Chloride (Ns Inj) 500 mls @ 30 mls/hr IV.SIG .Q10H [facility] Last Admin: 05/16/18 11:01 Dose: Not Given Dextrose/Sodium Chloride (D5w/1/2 Ns Inj) 1,000 mls @ 84 mls/hr IV.CONT .[id number] [facility] Last Admin: 05/19/18 06:15 Dose: Not Given Lactulose (Lactulose Liq) 30 ml PO DAILY PRN PRN Reason: SEVERE CONSITIPATION Lisinopril (Prinivil) 5 mg PO [facility] Last Admin: 05/18/18 21:07 Dose: Not Given Miscellaneous (Pill Splitter) 1 each OTHER UNSCH PRN PRN Reason: SEE LABEL COMMENTS Morphine Sulfate (Morphine Inj) 2 mg IV.PUSH Q3H PRN PRN Reason: PAIN 1-10 AND/OR FEVER >101F Last Admin: 05/16/18 20:10 Dose: 2 mg Multivitamins (Theragran) 1 tab PO DAILY [facility] Last Admin: 05/18/18 09:09 Dose: 1 tab Ondansetron HCl (Zofran Inj) 4 mg IV.PUSH Q6H PRN PRN Reason: NAUSEA OR VOMITING Senna/Docusate Sodium (Salma-Colace) 1 tab PO BID [facility] Last Admin: 05/18/18 21:07 Dose: Not Given Sennosides (Senokot) 17.2 mg PO Q12H PRN PRN Reason: Moderate Constipation Sodium Chloride (Ns Flush) 2 ml IV.FLUSH BID [facility] Last Admin: 05/18/18 22:25 Dose: Not Given Sodium Chloride (Ns Flush) 2 ml IV.FLUSH PRN PRN PRN Reason: FLUSH AFTER USING IV ACCESS Thiamine HCl (Thiamine Inj) 100 mg IM DAILY [facility] Last Admin: 05/18/18 18:12 Dose: 100 mg Vitamin D (Vitamin D3) 2,000 unit PO DAILY [facility] Last Admin: 05/18/18 09:26 Dose: 2,000 unit Allergies/Adverse Reactions: Allergies Allergy/AdvReac Type Severity Reaction Status Date / Time No Known Allergies Allergy Verified 05/15/18 12:03 Review of Systems All other systems reviewed negative except as stated in HPI Physical Exam Vital signs: Vital Signs 05/18/18 09:16 05/18/18 11:48 05/18/18 15:08 Temperature 97.7 F 97.7 F 97.3 F L Pulse Rate 60 60 63 Respiratory Rate 17 17 18 Blood Pressure 147/67 H 146/67 H 172/71 H Pulse Oximetry 98 100 100 05/18/18 20:00 05/19/18 00:00 05/19/18 04:39 Temperature 97.6 F 98 F 97.8 F Pulse Rate 60 58 L 65 Respiratory Rate 18 18 17 Blood Pressure 180/81 H 178/81 H 113/70 Pulse Oximetry 100 100 100 Intake & Output 05/18/18 05/19/18 05/19/18 18:59 06:59 18:59 Intake Total 1000 / 1000 1672 / 1672 Output Total 550 / 550 Balance 1000 / 1000 1122 / 1122 Intake: IV 1000 / 1000 1672 / 1672 D5W/1/2 NS Inj 1,000 ML @ 84 1000 / 1000 1672 / 1672 mls/hr IV.CONT .[id number] [facility] Rx# :[id number] Output: Urine Amount (Catheter) 550 / 550 Condom 550 / 550 Other: Date of Last Bowel Movement 05/17/18 Narrative: GENERAL: in NAD, SKIN: Warm and dry. HEAD: Atraumatic. Normocephalic. EYES: Pupils equal and round. ENT: No nasal bleeding or discharge. NECK: Trachea midline. No JVD. CARDIOVASCULAR: Regular rate and rhythm. Pacemaker RESPIRATORY: No accessory muscle use. GASTROINTESTINAL: Abdomen soft, non-tender, nondistended. MUSCULOSKELETAL: Extremities without clubbing, cyanosis, or edema. No obvious deformities. NEUROLOGICAL: more alert, calm, ox 1, states 4-5 words, hypophonic speech, pupils reactive approximately 3-2 mm, reduced left nasolabial fold, mild ue rigidity, withdrawal left lower extremity reduced in the right lower extremity, no tremors sensory examination limited PSYCHIATRIC: calm - Constitutional no acute distress - Routine HEENT Exam Head: Present: normocephalic Eye: Present: EOMI - Urinary Catheter Management Straight Cath placed during this visit: no Condom Cath placed during this visit: no Objective Laboratory Results - last 24 hr 05/18/18 05/18/18 05/19/18 13:16 17:50 06:27 WBC RBC Hgb Hct MCV MCH MCHC RDW Plt Count MPV Neut % (Auto) Lymph % (Auto) [place] % (Auto) Eos % (Auto) Baso % (Auto) Neut # (Auto) Lymph # (Auto) [place] # (Auto) Eos # (Auto) Baso # (Auto) WBC Differential Differential Comment ESR 46 H Puncture Site Left brachial Patient Temperature 98.6 O2 Saturation 94 ABG pH 7.46 H ABG pCO2 35 L ABG pO2 75 ABG HCO3 24 ABG O2 Content 10.4 L ABG Base Excess 0.9 ABG Methemoglobin 1.3 Ronak Test Y Hemoglobin 7.8 L* Carboxyhemoglobin 1.5 O2 Delivery Device Ra Critical Value Yes Potassium 3.9 D C-Reactive Protein 05/19/18 05/19/18 06:27 06:27 WBC 5.8 RBC 2.42 L Hgb 7.6 L Hct 22.4 L MCV 92.4 MCH 31.2 MCHC 33.8 RDW 12.4 Plt Count 117 L MPV 9.9 Neut % (Auto) 59.8 Lymph % (Auto) 17.0 [place] % (Auto) 10.1 H Eos % (Auto) 12.5 H Baso % (Auto) 0.6 Neut # (Auto) 3.5 Lymph # (Auto) 1.0 [place] # (Auto) 0.6 Eos # (Auto) 0.7 H Baso # (Auto) 0.0 WBC Differential . Differential Comment Auto diff final ESR Puncture Site Patient Temperature O2 Saturation ABG pH ABG pCO2 ABG pO2 ABG HCO3 ABG O2 Content ABG Base Excess ABG Methemoglobin Ronak Test Hemoglobin Carboxyhemoglobin O2 Delivery Device Critical Value Potassium C-Reactive Protein 6.60 H Review/Management - Diagnosis (1) Encephalopathy Code(s): G93.40 - Encephalopathy, unspecified Status: Acute Current Visit: Yes (2) Syncope Code(s): R55 - Syncope and collapse Status: Acute Current Visit: No (3) Closed intertrochanteric fracture of right femur Code(s): S72.141A - Displaced intertrochanteric fracture of right femur, initial encounter for closed fracture Status: Acute Current Visit: Yes - Review/Management Plan: Postop lethargy. Considerations would include stroke versus Lewy body dementia versus seizure versus metabolic/medication related He is on oral anticoagulation therefore stroke would be less likely but possible. Chronic renal insufficiency CT brain no acute lesion Carotid ultrasound 04/2018- EEG 04/2018- negative for seizures Recommendations more alert. suspect he may have underlying lewy body dementia that worsened 2/2 anesthesia/opiods keep awake during the day cxr-negative. no fever. no leukocytosis MRI brain contraindicated as he has a pacemaker Avoid sedatives opiates Nutritional support, IV thiamine Obtain repeat follow-up CT brain scan Discussed with yossi at bedside (2) Syncope Qualifiers: Syncope type: unspecified Qualified Code(s): R55 - Syncope and collapse (3) Closed intertrochanteric fracture of right femur Qualifiers: Encounter type: subsequent encounter Fracture alignment: nondisplaced Qualified Code(s): S72.144A - Nondisplaced intertrochanteric fracture of right femur, initial encounter for closed fracture
--- NOTE | 2018-05-19 09:44 | CT ---
EXAM DATE: 05/19/2018 9:34 AM EST AGE/SEX: 83 years / Male INDICATIONS: Acute neurological changes CLINICAL DATA: This is the patient's initial encounter. Patient reports that signs and symptoms have been present for 1 day and indicates a pain score of 0/10. MEDICAL/SURGICAL HISTORY: Hypertension. Carcinoma, prostatic. . Neck surgery RADIATION DOSE: 56.35 CTDI (mGy) COMPARISON: [facility] [place], CT HEAD W/O CONTRAST, 05/17/2018. . TECHNIQUE: CT of the head without contrast. Using automated exposure control and adjustment of the mA and/or kV according to patient size, radiation dose was kept as low as reasonably achievable to ob tain optimal diagnostic quality images. DICOM format image data is available electronically for revi ew and comparison. FINDINGS: Cerebrum: The ventricles are normal for age with diffuse atrophic change. Chronic small vessel ische dhruv changes are again noted. No evidence of midline shift, mass lesion, hemorrhage or acute infarctio n. No extraaxial fluid collections are seen. Posterior Fossa: The cerebellum and brainstem are intact. The 4th ventricle is midline. The cerebe llopontine angle is unremarkable. Extracranial: The visualized portion of the orbits is intact. Skull: The calvaria is intact. No evidence of skull fracture. CONCLUSION: 1. Atrophy and chronic small vessel ischemic change again noted. 2. No acute hemorrhage, mass or evidence of acute infarction. . Electronically signed by: Félix Wren MD Board Certified Radiologist 05/19/2018 9:42 AM EST
[2018-05-19] MEDS: Senna/Docusate Sodium 8.6/50 MG Tablet PO SCH ×2 (13:05→22:46)
[2018-05-19 13:18] LABS: Calcium 8.2 mg/dL (8.5-10.1); Carbon Dioxide 25.7 meq/L (21.0-32.0); Potassium 3.7 meq/L (3.5-5.1)
--- NOTE | 2018-05-19 15:04 | P.PNIM ---
Subjective Interval history: Follow-up for acute metabolic encephalopathy, status post fall with right hip fracture, status post right IM nail 05/16: Patient seen and examined, son at bedside. RN itz Coyle for left facial droop. Rapid response called canceled. At bedside now, discussed with son at length. Patient was seen by Dr. Mccarthy this morning, left facial droop was noted. 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 CT of the head has already been ordered. Patient is not able to have MRI. Patient has not been awake enough to have anything to eat for the last 2 days. Son endorses that his father has had somewhat of a decline, he has episodes where he is very sharp and clear and other times he has episodes of orthostatic hypotension and he becomes lethargic and barely responsive. Blood pressure elevated 170s. At this time, he does open his eyes to voice, he recognizes his son and follows simple command. Difficult to obtain any ROS. Physical Exam Vital signs: Vital Signs 05/18/18 15:08 05/18/18 20:00 05/19/18 00:00 Temperature 97.3 F L 97.6 F 98 F Pulse Rate 63 60 58 L Respiratory Rate 18 18 18 Blood Pressure 172/71 H 180/81 H 178/81 H Pulse Oximetry 100 100 100 05/19/18 04:39 05/19/18 07:53 05/19/18 11:36 Temperature 97.8 F 98.1 F 97.4 F L Pulse Rate 65 60 62 Respiratory Rate 17 18 18 Blood Pressure 113/70 170/79 H Pulse Oximetry 100 94 L 98 Intake & Output 05/18/18 05/19/18 05/19/18 18:59 06:59 18:59 Intake Total 1000 / 1000 1672 / 1672 0 / 0 Output Total 550 / 550 Balance 1000 / 1000 1122 / 1122 0 / 0 Intake: IV 1000 / 1000 1672 / 1672 D5W/1/2 NS Inj 1,000 ML @ 84 1000 / 1000 1672 / 1672 mls/hr IV.CONT .[id number] [facility] Rx# :[id number] Oral 0 / 0 Output: Urine Amount (Catheter) 550 / 550 Condom 550 / 550 Other: Date of Last Bowel Movement 05/17/18 Narrative: General: 83-year-old elderly male, lethargic, HEENT extraocular movements are intact, clear oropharyngeal mucosa, no JVD Cardiovascular S1-S2 audible, RRR, soft murmurs, no rubs, no gallops Respiratory: clear to auscultation bilaterally Abdomen soft, nontender, nondistended, normal bowel sounds Musculoskeletal: Right hip incision intact. No exudate. Painful to palpation. BLE 4/5. LUE weaker than RUE. Bilat pedal pulses 2+ Neuro: Patient awakes to voice, recognizes son. Follows simple commands. Speech is clear but at times difficult to understand as he is speaking very softly. Sensation appears to be intact. Left facial droop is noted. Left upper extremity weaker than right. Appears to have right gaze preferred Urinary Catheter Management Straight: Cath placed during this visit: no Condom: Cath placed during this visit: no Results Labs CBC & Chem 7: 05/19/18 06:27 05/19/18 06:27 Imaging Imaging: Impressions Cervical Spine CT 05/15/18 12:10 CONCLUSION: 1. No evidence of fracture. 2. 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 Chest X-Ray 05/15/18 12:10 CONCLUSION: The lungs are clear. Femur X-Ray 05/15/18 12:10 CONCLUSION: Nondisplaced comminuted right intertrochanteric fracture. Head CT 05/15/18 12:10 CONCLUSION: 1. Negative CT Head non contrast. . Pelvis X-Ray 05/15/18 12:10 CONCLUSION: Nondisplaced comminuted fracture involving the right intertrochanteric region. Hip X-Ray 05/16/18 00:00 CONCLUSION: Excellent alignment of the hip fracture post reduction and hardware placement. Head CT 05/17/18 00:00 CONCLUSION: 1. Cerebral atrophy and chronic ischemic small vessel vasculopathy. 2. No acute intracranial abnormality. . Chest X-Ray 05/18/18 15:45 CONCLUSION: No acute cardiopulmonary disease. Head CT 05/19/18 09:02 CONCLUSION: 1. Atrophy and chronic small vessel ischemic change again noted. 2. No acute hemorrhage, mass or evidence of acute infarction. . Assessment and Plan (1) Syncope: Code(s): R55 - Syncope and collapse Status: Acute (2) Closed intertrochanteric fracture of right femur: Code(s): S72.141A - Displaced intertrochanteric fracture of right femur, initial encounter for closed fracture Status: Acute (3) Encephalopathy: Code(s): G93.40 - Encephalopathy, unspecified Status: Acute Plan This patient is an 83-year-old male with a past medical history of hypertension , dyslipidemia, atrial fibrillation on anticoagulation, sick sinus syndrome, documented AAA, chronic kidney disease, dementia, chronic back pain. Patient presented after suffering a ground-level fall at home Acute metabolic encephalopathy, pt. more lethargic over past 2 days, minimally responsive. Etiology likely multifactorial, post op status, opioid, anesthesia Unclear if any seizure disorder He was receiving p.o. Benadryl as well as morphine and Depakote. As per the patient's he was not taking Depakote prior to admission. Depakote, Klonopin, Benadryl have been stopped. -Continue neurochecks -CT head with no acute abnormality. An MRI was ordered however the patient has a pacemaker and cannot get the MRI. -as he was not awake to swallow, Eliquis on hold, he is on Lovenox for now. -continue D5 half NS. -consult Neurology, appreciate Dr. Mccarthy's input. Recommended repeat CT, Thiamine IM daily. -EEG has been done, per neurology no seizures noted -Patient had recent workup in April, echo was done, EF 55-60. Holter done as well, no significant findings -will consult ST for swallow eval. for now continue with NPO status. Hold PO meds -We will order cardiac telemetry monitoring Right intertrochanteric fracture status post right trochanteric nail 2/3 -appreciate ortho input -continue post op care -Lovenox for DVT prophylaxis, will resume Eliquis when patient able to take p.o. -Weightbearing as tolerated Wound care Bowel regimen -Use Tylenol for now for pain management due to NSAID Atrial fibrillation Heart rate under control -Eliquis on hold as patient has been too lethargic to eat, on Lovenox CKD stage III Serum creatinine is currently at baseline. -Continue to monitor kidney function, avoid nephrotoxic agents. -Creatinine improving Hypertension History of orthostatic -Blood pressure has been somewhat elevated up to 170s, as we are ruling out stroke, we will allow permissive hypertension. -Continue with lisinopril when able to take p.o. Dementia, per neurology, possible Lewy body Continue with donezepil Anemia, hemoglobin trending down, today 7.6 Thrombocytopenia -Repeat CBC in the morning, transfuse if hemoglobin less than 7 -Monitor platelets, improving Repeat labs in the morning Continue with Lovenox for DVT prophylaxis Case management following, SNF placement in 1-2 days Code Status: DNR Discussed Condition With: RN, pt's son, CM Dr. Flakito Funez Discharge Planning: to SNF 1-2 days Progress Note: Quality VTE Deep Vein Thrombosis/Pulmonary Embolism Present on Admission: No _ (1) Syncope Qualifiers: Encounter type: Syncope type: unspecified Qualified Code(s): R55 - Syncope and collapse (2) Closed intertrochanteric fracture of right femur Qualifiers: Encounter type: subsequent encounter Fracture alignment: nondisplaced Fracture healing: Qualified Code(s): S72.144A - Nondisplaced intertrochanteric fracture of right femur, initial encounter for closed fracture
--- NOTE | 2018-05-19 16:05 | MG ---
cc: Alma Castañeda MD ROOM: 1629 Lethargic at the end of the study, became more awake. Photic done, followed commands. EEG 04/15/2018 shows mild abnormality due to slowing. CT shows atrophy, white matter changes, admitted with dizziness, fall, and hitting her head. Currently on Eliquis and Aricept per description of record, is overall slowing of background predominantly of 2-3 Hz and tremoring of the left arm and it does not correlate with any epileptiform features. Hyperventilation could not be done. Photic stimulation was done towards the end without any significant driving response. The patient was asked to squeeze with hands during the end of the recording by EPOCH 131. Overall, there is still about 5 Hz slowing at that time. Was able to state his name, did not know the month or the year. IMPRESSION: Mild to moderate slowing of background still consistent with what looks like an encephalopathic process. Clinical correlation. Alma Castañeda MD DF/ , 03:31 PM , 03:36 PM
[2018-05-19] MEDS: Lisinopril 5 MG Tablet PO SCH (22:46)
[2018-05-20] MEDS: Acetaminophen 325 MG Tablet PO PRN ×3 (05:32→19:23)
[2018-05-20 07:09] LABS: Hematocrit 21.7 % (39.0-51.0); Hemoglobin 7.6 gm/dL (13.0-17.0); Mean Corpuscular HGB Conc 34.7 % (32.0-36.0); Mean Corpuscular Hemoglobin 32.2 pg (27.0-34.0); Mean Corpuscular Volume 92.7 fL (80.0-100.0); Mean Platelet Volume 9.8 fL (7.0-11.0); Platelet Count 131 th/mm3 (150-450); Red Blood Count 2.34 mil/mm3 (4.50-5.90); Red Cell Distribution Width 12.2 % (11.6-17.2); White Blood Count 6.1 th/mm3 (4.0-11.0)
[2018-05-20 07:31] LABS: Calcium 8.5 mg/dL (8.5-10.1); Carbon Dioxide 24.6 meq/L (21.0-32.0); Potassium 3.7 meq/L (3.5-5.1)
[2018-05-20] MEDS ORDERED: Sodium Chlor 0.9% Inj 250 ML IV.SIG SCH (08:00)
[2018-05-20] MEDS: Dextrose 5%/NaCl 0.45% Inj 1,000 ML IV.CONT SCH ×2 (08:30→08:31)
--- NOTE | 2018-05-20 09:07 | P.PNNEU ---
Subjective Subjective Comments: no acute events. no morley, shoulder pain. went to sleep around 1am. had some repetitive behavior Active Medications: Active Medications Acetaminophen (Tylenol) 650 mg PO Q4H PRN PRN Reason: Temp > 100.4 Last Admin: 05/20/18 05:32 Dose: 650 mg Hydrocodone Bitart/Acetaminophen ([place] 5/325) 1 tab PO Q3H PRN PRN Reason: Pain Scale 3-10 Al Hydroxide/Mg Hydroxide (Milk Of Magnesia Liq) 30 ml PO Q12H PRN PRN Reason: Mild Constipation Apixaban (Eliquis) 2.5 mg PO BID [facility] Last Admin: 05/19/18 22:46 Dose: 2.5 mg Bisacodyl (Dulcolax Supp) 10 mg RECTAL DAILY PRN PRN Reason: SEVERE CONSITIPATION Cyclobenzaprine HCl (Flexeril) 5 mg PO Q8HR [facility] Last Admin: 05/17/18 14:21 Dose: Not Given Donepezil HCl (Aricept) 10 mg PO [facility] Last Admin: 05/19/18 22:47 Dose: 10 mg Enoxaparin Sodium (Lovenox Inj) 40 mg SQ Q24H [facility] Last Admin: 05/17/18 00:57 Dose: 40 mg Dextrose/Sodium Chloride (D5w/1/2 Ns Inj) 1,000 mls @ 84 mls/hr IV.CONT .[id number] [facility] Last Admin: 05/20/18 08:31 Dose: Not Given Sodium Chloride (Ns Inj) 250 mls @ 15 mls/hr IV.SIG ONCE [facility] Stop: 05/21/18 00:39 Lactulose (Lactulose Liq) 30 ml PO DAILY PRN PRN Reason: SEVERE CONSITIPATION Lisinopril (Prinivil) 5 mg PO [facility] Last Admin: 05/19/18 22:46 Dose: 5 mg Miscellaneous (Pill Splitter) 1 each OTHER UNSCH PRN PRN Reason: SEE LABEL COMMENTS Morphine Sulfate (Morphine Inj) 2 mg IV.PUSH Q3H PRN PRN Reason: PAIN 1-10 AND/OR FEVER >101F Last Admin: 05/16/18 20:10 Dose: 2 mg Multivitamins (Theragran) 1 tab PO DAILY [facility] Last Admin: 05/19/18 13:05 Dose: 1 tab Ondansetron HCl (Zofran Inj) 4 mg IV.PUSH Q6H PRN PRN Reason: NAUSEA OR VOMITING Senna/Docusate Sodium (Salma-Colace) 1 tab PO BID [facility] Last Admin: 05/19/18 22:46 Dose: Not Given Sennosides (Senokot) 17.2 mg PO Q12H PRN PRN Reason: Moderate Constipation Sodium Chloride (Ns Flush) 2 ml IV.FLUSH BID [facility] Last Admin: 05/19/18 22:47 Dose: Not Given Sodium Chloride (Ns Flush) 2 ml IV.FLUSH PRN PRN PRN Reason: FLUSH AFTER USING IV ACCESS Thiamine HCl (Thiamine Inj) 100 mg IM DAILY [facility] Last Admin: 05/19/18 13:07 Dose: 100 mg Vitamin D (Vitamin D3) 2,000 unit PO DAILY [facility] Last Admin: 05/19/18 13:05 Dose: 2,000 unit Allergies/Adverse Reactions: Allergies Allergy/AdvReac Type Severity Reaction Status Date / Time No Known Allergies Allergy Verified 05/19/18 13:11 Review of Systems All other systems reviewed negative except as stated in HPI Physical Exam Vital signs: Vital Signs 05/19/18 11:36 05/19/18 16:00 05/19/18 20:00 Temperature 97.4 F L 97.6 F 98.6 F Pulse Rate 62 62 60 Respiratory Rate 18 18 20 Blood Pressure 181/79 H 142/72 H Pulse Oximetry 98 97 99 05/20/18 00:20 05/20/18 05:00 05/20/18 05:05 Temperature 99.7 F H 97.6 F Pulse Rate 64 60 Respiratory Rate 20 20 Blood Pressure 178/84 H 208/91 H 160/70 H Pulse Oximetry 997 H 94 L Intake & Output 05/19/18 05/20/18 05/20/18 18:59 06:59 18:59 Intake Total 0 / 0 90 / 90 Balance 0 / 0 90 / 90 Weight 61.1 kg Intake: Oral 0 / 0 90 / 90 Other: # Incontinent Voids 3 # Incontinent Bowel Movements 2 Narrative: GENERAL: in NAD, SKIN: Warm and dry. HEAD: Atraumatic. Normocephalic. EYES: Pupils equal and round. ENT: No nasal bleeding or discharge. NECK: Trachea midline. No JVD. CARDIOVASCULAR: Regular rate and rhythm. Pacemaker RESPIRATORY: No accessory muscle use. GASTROINTESTINAL: Abdomen soft, non-tender, nondistended. MUSCULOSKELETAL: Extremities without clubbing, cyanosis, or edema. No obvious deformities. NEUROLOGICAL: drowsy, alerts, calm, ox 1, to self, recognizes son at bedside and who he spoke to earlier on, states 4-5 words, hypophonic speech, pupils reactive approximately 3-2 mm, reduced left nasolabial fold, mild ue rigidity, left distal hand with atrophy, withdrawal left lower extremity reduced in the right lower extremity, no tremors sensory examination limited PSYCHIATRIC: calm - Constitutional no acute distress - Routine HEENT Exam Head: Present: normocephalic Eye: Present: EOMI - Urinary Catheter Management Straight Cath placed during this visit: no Condom Cath placed during this visit: no Objective Laboratory Results - last 24 hr 05/19/18 05/20/18 05/20/18 06:27 05:10 05:10 WBC 6.1 RBC 2.34 L Hgb 7.6 L Hct 21.7 L MCV 92.7 MCH 32.2 MCHC 34.7 RDW 12.2 Plt Count 131 L MPV 9.8 Sodium 141 137 Potassium 3.7 3.7 Chloride 109 H 106 Carbon Dioxide 25.7 24.6 Anion Gap 6 6 BUN 28 H 20 H Creatinine 1.15 1.01 Estimated GFR 61 L 70 L Random Glucose 106 98 Calcium 8.2 L D 8.5 Review/Management - Diagnosis (1) Syncope Code(s): R55 - Syncope and collapse Status: Acute Current Visit: No (2) Closed intertrochanteric fracture of right femur Code(s): S72.141A - Displaced intertrochanteric fracture of right femur, initial encounter for closed fracture Status: Acute Current Visit: Yes (3) Encephalopathy Code(s): G93.40 - Encephalopathy, unspecified Status: Acute Current Visit: Yes - Review/Management Plan: Postop lethargy. Considerations would include stroke versus Lewy body dementia versus seizure versus metabolic/medication related He is on oral anticoagulation therefore stroke would be less likely but possible. Chronic renal insufficiency CT brain no acute lesion Carotid ultrasound 04/2018- EEG 04/2018- negative for seizures Recommendations alert but confused. metabolic and suspect he may have underlying lewy body dementia that worsened 2/2 anesthesia/opiods anemia, poor po intake contributory may need NG tube feeds? transfusion? keep awake during the day- d/w son cxr-negative. no fever. no leukocytosis MRI brain contraindicated as he has a pacemaker Avoid sedatives opiates Nutritional support, IV thiamine Discussed with son at bedside (1) Syncope Qualifiers: Syncope type: unspecified Qualified Code(s): R55 - Syncope and collapse (2) Closed intertrochanteric fracture of right femur Qualifiers: Encounter type: subsequent encounter Fracture alignment: nondisplaced Qualified Code(s): S72.144A - Nondisplaced intertrochanteric fracture of right femur, initial encounter for closed fracture
[2018-05-20 09:44] LABS: % Iron Saturation 11.6 % (20-50)
--- NOTE | 2018-05-20 15:21 | P.PNIM ---
Subjective Interval history: Follow-up for acute metabolic encephalopathy, status post fall with right hip fracture, status post right IM nail 05/16: Patient seen and examined, remains encephalopathic. Per son at bedside, he has periods of alertness. Yesterday he was able to get out of bed to chair and ate a few bites of dinner. He has been mostly lethargic today, conversation does not make sense, he appears to move all extremities well. No fever overnight. Patient does open eyes to voice but immediately falls back asleep. He is not following commands consistently. Not talking very much. Family at bedside has many questions. Patient has not been eating much, he has not been able to participate in therapy because of his mentation. indicates that patient will not want to live in a long-term care facility and he would prefer to remain with her. They are residents at independent living facility that also has an [facility] option. Physical Exam Vital signs: Vital Signs 05/19/18 16:00 05/19/18 20:00 05/20/18 00:20 Temperature 97.6 F 98.6 F 99.7 F H Pulse Rate 62 60 64 Respiratory Rate 18 20 20 Blood Pressure 181/79 H 142/72 H 178/84 H Pulse Oximetry 97 99 997 H 05/20/18 05:00 05/20/18 05:05 05/20/18 08:00 Temperature 97.6 F 97.7 F Pulse Rate 60 64 Respiratory Rate 20 16 Blood Pressure 208/91 H 160/70 H 175/79 H Pulse Oximetry 94 L 98 05/20/18 12:00 05/20/18 12:23 Temperature 98.1 F 97.1 F L Pulse Rate 60 60 Respiratory Rate 16 16 Blood Pressure 158/73 H 158/73 H Pulse Oximetry 99 99 Intake & Output 05/19/18 05/20/18 05/20/18 18:59 06:59 18:59 Intake Total 0 / 0 90 / 90 0 / 0 Balance 0 / 0 90 / 90 0 / 0 Weight 61.1 kg Intake: Oral 0 / 0 90 / 90 Intake (Blood Product) Amt 0 / 0 Rbc As-3 Leukoreduced Unit 0 / 0 [id number] Other: # Incontinent Voids 3 # Incontinent Bowel Movements 2 Narrative: General: 83-year-old elderly male, lethargic, restless at times HEENT extraocular movements are intact, clear oropharyngeal mucosa, no JVD Cardiovascular S1-S2 audible, RRR, soft murmur, no rubs, no gallops Respiratory: clear to auscultation bilaterally Abdomen soft, nontender, nondistended, normal bowel sounds Musculoskeletal: Right hip incision intact. No exudate. Painful to palpation. BLE 4/5. LUE weaker than RUE. Bilat pedal pulses 2+ Neuro: Patient awakes to voice, but falls back asleep. Not following commands consistently. Not talking much today. Sensation appears to be intact. Minimal left facial droop is noted. Left upper extremity weaker than right. Urinary Catheter Management Straight: Cath placed during this visit: no Condom: Cath placed during this visit: no Results Labs CBC & Chem 7: 05/20/18 05:10 05/20/18 05:10 Assessment and Plan (1) Syncope: Code(s): R55 - Syncope and collapse Status: Acute (2) Closed intertrochanteric fracture of right femur: Code(s): S72.141A - Displaced intertrochanteric fracture of right femur, initial encounter for closed fracture Status: Acute (3) Encephalopathy: Code(s): G93.40 - Encephalopathy, unspecified Status: Acute Plan This patient is an 83-year-old male with a past medical history of hypertension , dyslipidemia, atrial fibrillation on anticoagulation, sick sinus syndrome, documented AAA, chronic kidney disease, dementia, chronic back pain. Patient presented after suffering a ground-level fall at home Acute metabolic encephalopathy, pt. more lethargic over past 2 days, minimally responsive. Etiology likely multifactorial, post op status, opioid, anesthesia Unclear if any seizure disorder He was receiving p.o. Benadryl as well as morphine and Depakote. As per the patient's he was not taking Depakote prior to admission. Depakote, Klonopin, Benadryl have been stopped. -Continue neurochecks -CT head with no acute abnormality. An MRI was ordered however the patient has a pacemaker and cannot get the MRI. -continue D5 half NS. -consult Neurology, appreciate Dr. Mccarthy's input. Recommended repeat CT, Thiamine IM daily. -Patient had recent workup in April, echo was done, EF 55-60. Holter done as well, no significant findings -ST recommended pureed, must be fed. -telemetry monitoring -repeat head CT yesterday, no acute findings -EEG mod. encephalopathy -pt. with likely metabolic encephalopathy with superimposed delirium. Very little improvement at this time. Patient not participating in therapy We will check a B12 level in the morning We will discuss with neurology as to other options, unclear if an LP will be appropriate at this time or another EEG. -medications reviewed in detail Right intertrochanteric fracture status post right trochanteric nail 2/3 -appreciate ortho input -continue post op care -Lovenox for DVT prophylaxis, will resume Eliquis when patient able to take p.o. -Weightbearing as tolerated, not fully participating in therapy due to mental status. Wound care Bowel regimen -Use Tylenol for now for pain management due to NSAID -ortho cleared for dc. Atrial fibrillation Heart rate under control -Eliquis has been started, no longer on Lovenox CKD stage III Serum creatinine is currently at baseline. -Continue to monitor kidney function, avoid nephrotoxic agents. -Creatinine improving Hypertension History of orthostatic -BP improved today, continue Lisinopril Dementia, per neurology, possible Lewy body Continue with donezepil Anemia, hemoglobin trending down, today 7.6 Thrombocytopenia -HH remains same, Hgb 7.6 -iron profile noted, low iron stores -will give 1 unit PRBC, T/S ordered -platelets trending up slowly 131 -no active bleeding noted. Protein calorie malnutrition, patient with very little intake over the last 4-5 days BMI 20.5 Patient at risk for aspiration, he has periods of alertness but mostly has been lethargic and requires assistance with meals -Dietitian consult -Continue with mechanical soft diet -Discussed with family at length, PEG tube is on option. endorses that this is something he would not want and she wants to respect his wishes. DVT prophylaxiscontinue Eliquis Case management following, SNF placement vs [facility] ? hospice 20 mins time spent. Patient condition, plan oftreatment and options have been extensively discussed. Face to face encounter with patient and pt's , 2 sons, daughter and her to discuss advance directives not limited to code status decision, living will,health care surrogate designation. All questions answered. Per , patient told her last week before fall that he would not want to be kept alive by artificial means including tube feeding if he can't have quality of life. He has had ongoing chronic back pain that has debilitated him and now uses a walker. According to he is not a surgical candidate. We discussed discharge options, rehab likely not to benefit him at this time as his mentation has not improved enough for him to participate fully. She is asking if the [facility] side of [place] can take him in this condition. We will have to discuss with case management if this is a possibility. We discussed hospice, they are amicable talking to them and see if they can provide some support. Patient's and her children appear realistic and understand that patient's condition is likely to deteriorate if he is not able to maintain his nutritional status. Hospice consult in place D/W Meme DAO from hospice Code Status: DNR Discussed Condition With: RN, pt's family CM Dr. Flakito Funez Discharge Planning: to SNF 1-2 days Progress Note: Quality VTE Deep Vein Thrombosis/Pulmonary Embolism Present on Admission: No _ (1) Syncope Qualifiers: Encounter type: Syncope type: unspecified Qualified Code(s): R55 - Syncope and collapse (2) Closed intertrochanteric fracture of right femur Qualifiers: Encounter type: subsequent encounter Fracture alignment: nondisplaced Fracture healing: Qualified Code(s): S72.144A - Nondisplaced intertrochanteric fracture of right femur, initial encounter for closed fracture
[2018-05-20] MEDS: Senna/Docusate Sodium 8.6/50 MG Tablet PO SCH ×2 (15:43→22:47)
--- NOTE | 2018-05-20 17:14 | P.PNOP ---
Subjective Interval history: The patient's family has been struggling with the options because he is not been waking up. They were discussed and the option of the PEG tube. They decided to wait another day. He started to eat pured food today. He is beginning to wake up. Physical Exam Vital signs: Vital Signs 05/19/18 20:00 05/20/18 00:20 05/20/18 05:00 Temperature 98.6 F 99.7 F H 97.6 F Pulse Rate 60 64 60 Respiratory Rate 20 20 20 Blood Pressure 142/72 H 178/84 H 208/91 H Pulse Oximetry 99 997 H 94 L 05/20/18 05:05 05/20/18 08:00 05/20/18 12:00 Temperature 97.7 F 98.1 F Pulse Rate 64 60 Respiratory Rate 16 16 Blood Pressure 160/70 H 175/79 H 158/73 H Pulse Oximetry 98 99 05/20/18 12:23 Temperature 97.1 F L Pulse Rate 60 Respiratory Rate 16 Blood Pressure 158/73 H Pulse Oximetry 99 Intake & Output 05/19/18 05/20/18 05/20/18 18:59 06:59 18:59 Intake Total 0 / 0 90 / 90 0 / 0 Balance 0 / 0 90 / 90 0 / 0 Weight 61.1 kg Intake: Oral 0 / 0 90 / 90 Intake (Blood Product) Amt 0 / 0 Rbc As-3 Leukoreduced Unit 0 / 0 [id number] Other: # Incontinent Voids 3 # Incontinent Bowel Movements 2 Narrative: The patient did not open his eyes for me but he was peaceful and followed some simple commands. The right hip dressing is clean dry and intact. His calves are soft. Homans sign is negative. - Urinary Catheter Management Straight Cath placed during this visit: no Condom Cath placed during this visit: no Results - Labs CBC & Chem 7: 05/20/18 05:10 05/20/18 05:10 Laboratory Results - last 24 hr 05/20/18 05/20/18 05/20/18 05:10 05:10 08:39 WBC 6.1 RBC 2.34 L Hgb 7.6 L Hct 21.7 L MCV 92.7 MCH 32.2 MCHC 34.7 RDW 12.2 Plt Count 131 L MPV 9.8 Sodium 137 Potassium 3.7 Chloride 106 Carbon Dioxide 24.6 Anion Gap 6 BUN 20 H Creatinine 1.01 Estimated GFR 70 L Random Glucose 98 Calcium 8.5 Iron TIBC % Saturation Blood Type O Negative Antibody Screen Negative MTS Gel Crossmatch 05/20/18 05/20/18 08:39 09:26 WBC RBC Hgb Hct MCV MCH MCHC RDW Plt Count MPV Sodium Potassium Chloride Carbon Dioxide Anion Gap BUN Creatinine Estimated GFR Random Glucose Calcium Iron 26 L TIBC 224 L % Saturation 11.6 L Blood Type Antibody Screen MTS Gel Crossmatch See Detail Assessment and Plan - Problem List (1) Closed intertrochanteric fracture of right femur Code(s): S72.141A - Displaced intertrochanteric fracture of right femur, initial encounter for closed fracture Status: Acute Qualifiers: Encounter type: subsequent encounter Fracture alignment: nondisplaced Qualified Code(s): S72.144A - Nondisplaced intertrochanteric fracture of right femur, initial encounter for closed fracture Plan: POD#4 Right troch Nail Medical management Physical therapy - Weight bearing as tolerated Currently order Lovenox but Ok to resume Eliquis D/C planning - anticipating SNF vs Home with HHC F/U in [address] Cantu or HUGH in office Monitor
[2018-05-20 19:57] LABS: Calcium 8.9 mg/dL (8.5-10.1); Carbon Dioxide 26.2 meq/L (21.0-32.0); Magnesium 1.9 mg/dL (1.5-2.5); Potassium 3.9 meq/L (3.5-5.1)
[2018-05-20] MEDS: Lisinopril 5 MG Tablet PO SCH (22:46)
[2018-05-21 07:04] LABS: Hematocrit 30.2 % (39.0-51.0); Hemoglobin 10.5 gm/dL (13.0-17.0); Mean Corpuscular HGB Conc 34.9 % (32.0-36.0); Mean Corpuscular Hemoglobin 31.9 pg (27.0-34.0); Mean Corpuscular Volume 91.6 fL (80.0-100.0); Mean Platelet Volume 9.5 fL (7.0-11.0); Platelet Count 146 th/mm3 (150-450); Red Cell Distribution Width 12.9 % (11.6-17.2); White Blood Count 5.6 th/mm3 (4.0-11.0)
[2018-05-21 07:27] LABS: Calcium 8.5 mg/dL (8.5-10.1); Carbon Dioxide 25.4 meq/L (21.0-32.0); Potassium 3.6 meq/L (3.5-5.1)
[2018-05-21] MEDS: Senna/Docusate Sodium 8.6/50 MG Tablet PO SCH ×2 (08:44→22:10)
[2018-05-21] MEDS ORDERED: hydrALAZINE 10 MG Tablet PO PRN (11:28)
--- NOTE | 2018-05-21 11:40 | P.DIET ---
Nutritional Evaluation Type of nutrition evaluation: initial Nutrition consult regarding: Diet Evaluation Nutrition screening: Poor PO Intake Screening comments[place] [facility] [place] Subjective Subjective Comments: Pt was tired, did not talk much during RD visit, spoke w/ family members about pts nutritional status. Objective - Diagnosis R hip fx, dizziness - Objective Body Mass Index: 20.5 % IBW: 87 (IBW = 154lb) Body Weight Used for Calculations: Actual (61.1kg) Energy Needs - Lower Range (kCal/kg): 30 Energy Needs - Upper Range (kCal/kg): 35 Lower Limit kCal/kg (kCals): 1,833 Upper Limit kCal/kg (kCals): 2,139 Lower Limit Protein Factor (Grams per Kg): 1.2 Upper Limit Protein Factor (Grams per Kg): 1.4 Lower Protein Needs (Protein): 72 Upper Protein Needs (Protein): 86 Dietitian Reviewed in Medical Record: Current diet, Curent medications, Intake & Output, Labs, Medical history Diet Order: regular Oral Diet Intake Amount: Poor <50% Speech Therapy Recommendations: Yes (mechanical soft, thin liquids) Objective Comments: PMH: aortic aneurysm, HTN Meds: MVI, thiamine, vit D Labs: reviewed [facility] 05/17/18 Assessment Assessment: Pt currently at nutritional risk r/t poor PO intake. ST recs reviewed, pt able to tolerate mechanical soft foods and thin liquids. Pt had poor PO intake prior to admission for 4-5 days and during this hospitalization. Family members were present during RD visit, they mentioned pt having an improved appetite today. One family member stated pt had 2/3 of an oatmeal and a yogurt today, said pt choked on coffee d/t him taking a big sip of it. Per chart, pt was eating only approximately 15% of meal trays for most meals. Back at home, pt drinks PO supplements, RD will provide Ensure Enlive TID. Continue to monitor PO and supplement intake. Labs reviewed, dietitian following. Recommendations: 1. ST recs reviewed, pt able to tolerate mechanical soft foods and thin liquids 2. RD to recommend Ensure Enlive TID as PO supplement 3. Continue to monitor PO and supplement intake 4. Dietitian following Dietitian to Monitor: Lab values, Intake & Output, Diet tolerance, Weight change , PO Intake, Swallow recommendations, Medical course
[2018-05-21] MEDS: Acetaminophen 325 MG Tablet PO PRN (11:43)
--- NOTE | 2018-05-21 15:09 | P.PNIM ---
Subjective Interval history: Follow-up for acute metabolic encephalopathy, status post fall with right hip fracture, status post right IM nail 05/16: Patient seen and examined, overnight, patient has become more awake. Family is at bedside, they inform me that patient has been eating more, he has been out of bed and has used commode. Patient states he wants to take a shower. He is oriented to place, he knows he is in the hospital not sure of name, he is able to provide the name of the city. He recognizes family members. He is following commands. He is noted with left hemianopsia, difficult to assess however he does not appear to see when family members are sitting on his left side. Yesterday he was noted with nonsustained VT, asymptomatic. Electrolytes were checked, mag and potassium okay. Cardiology has been consulted and is pending. Today he is noted in sinus rhythm, occasional PVCs and one episode of nonsustained VT. Physical Exam Vital signs: Vital Signs 05/20/18 20:20 05/20/18 21:01 05/20/18 23:55 Temperature 97.0 F L 98.4 F 97.6 F Pulse Rate 60 62 59 L Respiratory Rate 19 17 18 Blood Pressure 115/83 159/82 H 157/89 H Pulse Oximetry 95 98 97 05/21/18 06:10 05/21/18 06:30 05/21/18 08:00 Temperature 96.7 F L 97.5 F L Pulse Rate 60 65 Respiratory Rate 18 18 Blood Pressure 212/93 H 170/72 H 184/73 H Pulse Oximetry 99 93 L 05/21/18 12:00 Temperature 97.5 F L Pulse Rate 59 L Respiratory Rate 18 Blood Pressure 182/93 H Pulse Oximetry 98 Intake & Output 05/20/18 05/21/18 05/21/18 18:59 06:59 18:59 Intake Total 380 / 380 240 / 240 Output Total 250 / 250 Balance 380 / 380 -10 / -10 Weight 61.1 kg Intake: Oral 380 / 380 240 / 240 Intake (Blood Product) Amt 0 / 0 Rbc As-3 Leukoreduced Unit 0 / 0 [id number] Output: Urine 250 / 250 Other: # Voids 5 3 # Incontinent Voids 1 Date of Last Bowel Movement 05/20/18 05/21/18 # Bowel Movements 4 1 Narrative: General: 83-year-old elderly male, lethargic, restless at times HEENT extraocular movements are intact, clear oropharyngeal mucosa, no JVD Cardiovascular S1-S2 audible, RRR, soft murmur, no rubs, no gallops Respiratory: clear to auscultation bilaterally Abdomen soft, nontender, nondistended, normal bowel sounds Musculoskeletal: Right hip incision intact. No exudate. Painful to palpation. BLE 4/5. LUE weaker than RUE. Bilat pedal pulses 2+ Neuro: Patient awake, more alert, oriented x2. Following commands. Left hemianopsia. Slightly left upper extremity weaker than right. Intact sensation. Urinary Catheter Management Straight: Cath placed during this visit: no Condom: Cath placed during this visit: no Results Labs CBC & Chem 7: 05/21/18 06:23 05/21/18 06:23 Assessment and Plan (1) Syncope: Code(s): R55 - Syncope and collapse Status: Acute (2) Closed intertrochanteric fracture of right femur: Code(s): S72.141A - Displaced intertrochanteric fracture of right femur, initial encounter for closed fracture Status: Acute (3) Encephalopathy: Code(s): G93.40 - Encephalopathy, unspecified Status: Acute Plan This patient is an 83-year-old male with a past medical history of hypertension , dyslipidemia, atrial fibrillation on anticoagulation, sick sinus syndrome, documented AAA, chronic kidney disease, dementia, chronic back pain. Patient presented after suffering a ground-level fall at home Acute metabolic encephalopathy, pt. more lethargic over past 2 days, minimally responsive. Etiology likely multifactorial, post op status, opioid, anesthesia Unclear if any seizure disorder He was receiving p.o. Benadryl as well as morphine and Depakote. As per the patient's he was not taking Depakote prior to admission. Depakote, Klonopin, Benadryl have been stopped. -Continue neurochecks -CT head with no acute abnormality. An MRI was ordered however the patient has a pacemaker and cannot get the MRI. -continue D5 half NS. -consult Neurology, appreciate Dr. Mccarthy's input. Recommended repeat CT, Thiamine IM daily. -Patient had recent workup in April, echo was done, EF 55-60. Holter done as well, no significant findings -ST recommended pureed, must be fed. -telemetry monitoring -repeat head CT05/19- no acute findings -EEG mod. encephalopathy B12 level okay -Mentation improved, questionable left hemianopsia. Family concerned that patient may have had a stroke, difficult to assess at times. He is definitely more improved and now eating. They wish to proceed and get him to rehab as soon as possible. Nonsustained VT, asymptomatic. -Device interrogation has been ordered Electrolytes checked, mag and potassium stable Consultation for Dr. Barragan, pending -Heart rate noted trending 100s, we will add low-dose Coreg 3.125 mg p.o. twice daily Right intertrochanteric fracture status post right trochanteric nail 2 -appreciate ortho input -continue post op care -Lovenox for DVT prophylaxis, will resume Eliquis when patient able to take p.o. -Weightbearing as tolerated, not fully participating in therapy due to mental status. Wound care Bowel regimen -Use Tylenol for now for pain management due to NSAID -ortho cleared for dc. Atrial fibrillation Heart rate under control -Eliquis has been started, no longer on Lovenox CKD stage III Serum creatinine is currently at baseline. -Continue to monitor kidney function, avoid nephrotoxic agents. -Creatinine improving Hypertension History of orthostatic BP -Continue with lisinopril Blood pressure has been noted trending up, we will add low-dose Coreg. Will add as needed hydralazine -Monitor blood pressure and adjust medications as necessary Dementia, per neurology, possible Lewy body Continue with donezepil Anemia, hemoglobin trending down, today 7.6 Thrombocytopenia -HH remains same, Hgb 7.6, 1 unit PRBC given 05/20. Hgb today 10.5 -iron profile noted, low iron stores -platelets trending up slowly 131 -no active bleeding noted. Protein calorie malnutrition, patient with very little intake over the last 4-5 days BMI 20.5 Patient at risk for aspiration, he has periods of alertness but mostly has been lethargic and requires assistance with meals -Dietitian consult, input appreciated -Continue with mechanical soft diet -Discussed with family at length, PEG tube is on option. endorses that this is something he would not want and she wants to respect his wishes. -Patient eating today, continue to encourage p.o. intake. Ensure has been added. DVT prophylaxiscontinue Eliquis Case management following[facility] can [facility] tomorrow if no further recommendations from cardiology. Discussed with patient and family at length, as the patient's mentation has improved, family would like patient to go to SNF. They met with hospice again today and at this time declined services. Patient's is hopeful that he can recover enough to [facility] Code Status: DNR Discussed Condition With: RN,pt and family, CM Dr. Flakito Funez Discharge Planning: to SNF 1-2 days Progress Note: Quality VTE Deep Vein Thrombosis/Pulmonary Embolism Present on Admission: No _ (1) Syncope Qualifiers: Encounter type: Syncope type: unspecified Qualified Code(s): R55 - Syncope and collapse (2) Closed intertrochanteric fracture of right femur Qualifiers: Encounter type: subsequent encounter Fracture alignment: nondisplaced Fracture healing: Qualified Code(s): S72.144A - Nondisplaced intertrochanteric fracture of right femur, initial encounter for closed fracture
--- NOTE | 2018-05-21 19:45 | P.CONCA ---
History of Present Illness Service: Cardiology covering Dr. Barragan Consult date: 05/21/18 Reason for Consult: Wide-complex tachycardia Primary Care Provider: Trey Duran MD Chief Complaint: Confusion History of Present Illness: Mr. Carrera is a pleasant 83-year-old gentleman with history of sick sinus syndrome status post permanent pacemaker placement paroxysmal atrial fibrillation, history of hypertension and CVA in the past. Came in with fractured right femur status post surgical intervention on May 16 followed by confusion/metabolic encephalopathy. He was found on telemetry to have wide- complex rhythm some of which was tachycardic and some reflecting multifocal ventricular rhythm and some of which reflect pacing rhythm. A consult was called for the wide-complex tachycardia for further evaluation and management. He denies any chest pain or shortness of breath. He is sitting in a recliner at the bedside with the family around. Denies palpitations dizziness or syncope however it is difficult to assess how accurate his responses. He does seem comfortable and only complains of right hip pains. Review of Systems Difficult to assess accurately and his current mental condition. Refer to the history of present illness. [facility] - History History Provided By: Patient, Family Member, Medical Record - Medical History Medical History: Medical History (This Medical Record has been edited. Action required.) Atrial fibrillation (Acute) Hypertension (Acute) Pacemaker (Acute) TIA (transient ischemic attack) (Acute) Kidney disease (Acute) Prostate cancer (Acute) Aortic aneurysm (Acute) Atrial fibrillation - Surgical History Surgical History: Surgical History (This Medical Record has been edited. Action required.) H/O neck surgery (Acute) - Family History Family History: Family History (This Medical Record has been edited. Action required.) Mother Unknown cause of morbidity or mortality Father Unknown cause of morbidity or mortality - Social History I have reviewed the patient's Social History: Yes - Tobacco History Second Hand Smoke Exposure: No Smoking Status: Never smoker - Alcohol History How Often Do You Have a Drink Containing Alcohol: Never - Substance Use History Substance History: No History of Abuse - Travel History Recent Travel in the [place] Within the Last 8 Weeks: No Recent Travel Out of the Country Within the Last 8 Weeks: No - Immunization History Tetanus Immunization: <5 Years Hx Influenza Vaccine This Season: Yes Medications and Allergies Active Medications: Active Medications Acetaminophen (Tylenol) 650 mg PO Q4H PRN PRN Reason: Temp > 100.4 Last Admin: 05/21/18 11:43 Dose: 650 mg Hydrocodone Bitart/Acetaminophen ([place] 5/325) 1 tab PO Q3H PRN PRN Reason: Pain Scale 3-10 Al Hydroxide/Mg Hydroxide (Milk Of Magnesia Liq) 30 ml PO Q12H PRN PRN Reason: Mild Constipation Apixaban (Eliquis) 2.5 mg PO BID [facility] Last Admin: 05/21/18 08:44 Dose: 2.5 mg Bisacodyl (Dulcolax Supp) 10 mg RECTAL DAILY PRN PRN Reason: SEVERE CONSITIPATION Carvedilol (Coreg) 3.125 mg PO BID [facility] Cyclobenzaprine HCl (Flexeril) 5 mg PO Q8HR [facility] Last Admin: 05/17/18 14:21 Dose: Not Given Donepezil HCl (Aricept) 10 mg PO [facility] Last Admin: 05/20/18 22:45 Dose: 10 mg Enoxaparin Sodium (Lovenox Inj) 40 mg SQ Q24H [facility] Last Admin: 05/17/18 00:57 Dose: 40 mg Hydralazine HCl (Apresoline) 10 mg PO Q8HR PRN PRN Reason: SBP>160, DBP>90 Last Admin: 05/21/18 15:24 Dose: 10 mg Dextrose/Sodium Chloride (D5w/1/2 Ns Inj) 1,000 mls @ 84 mls/hr IV.CONT .[id number] [facility] Last Admin: 05/20/18 08:31 Dose: Not Given Lactulose (Lactulose Liq) 30 ml PO DAILY PRN PRN Reason: SEVERE CONSITIPATION Lisinopril (Prinivil) 5 mg PO [facility] Last Admin: 05/20/18 22:46 Dose: 5 mg Miscellaneous (Pill Splitter) 1 each OTHER UNSCH PRN PRN Reason: SEE LABEL COMMENTS Morphine Sulfate (Morphine Inj) 2 mg IV.PUSH Q3H PRN PRN Reason: PAIN 1-10 AND/OR FEVER >101F Last Admin: 05/16/18 20:10 Dose: 2 mg Multivitamins (Theragran) 1 tab PO DAILY [facility] Last Admin: 05/21/18 08:44 Dose: 1 tab Ondansetron HCl (Zofran Inj) 4 mg IV.PUSH Q6H PRN PRN Reason: NAUSEA OR VOMITING Senna/Docusate Sodium (Salma-Colace) 1 tab PO BID [facility] Last Admin: 05/21/18 08:44 Dose: 1 tab Sennosides (Senokot) 17.2 mg PO Q12H PRN PRN Reason: Moderate Constipation Sodium Chloride (Ns Flush) 2 ml IV.FLUSH BID [facility] Last Admin: 05/21/18 08:44 Dose: 2 ml Sodium Chloride (Ns Flush) 2 ml IV.FLUSH PRN PRN PRN Reason: FLUSH AFTER USING IV ACCESS Thiamine HCl (Thiamine Inj) 100 mg IM DAILY [facility] Last Admin: 05/21/18 14:39 Dose: Not Given Vitamin D (Vitamin D3) 2,000 unit PO DAILY [facility] Last Admin: 05/21/18 08:44 Dose: 2,000 unit Allergies Allergy/AdvReac Type Severity Reaction Status Date / Time No Known Allergies Allergy Verified 05/19/18 13:11 Home Medications Medication Instructions Recorded Confirmed Type Adults Multivitamin 1 tab PO DAILY 01/07/18 05/15/18 History apixaban [Eliquis] 2.5 mg PO BID 01/07/18 05/16/18 History benazepril 10 mg PO DAILY 01/07/18 05/16/18 History divalproex 250 mg PO Q OTHER DAY 01/07/18 05/16/18 History donepezil 10 mg PO HS 01/07/18 05/15/18 History hydrocodone-acetaminophen 1 tab PO BID PRN 01/07/18 05/15/18 History cholecalciferol (vitamin D3) 2,000 unit PO DAILY 02/03/18 05/15/18 History [Vitamin D3] Exam Vital signs: Vital Signs 05/20/18 20:20 05/20/18 21:01 05/20/18 23:55 Temperature 97.0 F L 98.4 F 97.6 F Pulse Rate 60 62 59 L Respiratory Rate 19 17 18 Blood Pressure 115/83 159/82 H 157/89 H Pulse Oximetry 95 98 97 05/21/18 06:10 05/21/18 06:30 05/21/18 08:00 Temperature 96.7 F L 97.5 F L Pulse Rate 60 65 Respiratory Rate 18 18 Blood Pressure 212/93 H 170/72 H 184/73 H Pulse Oximetry 99 93 L 05/21/18 12:00 05/21/18 15:13 05/21/18 16:00 Temperature 97.5 F L 97.5 F L Pulse Rate 59 L 59 L Respiratory Rate 18 18 Blood Pressure 182/93 H 162/85 H Pulse Oximetry 98 98 05/21/18 16:44 Temperature Pulse Rate Respiratory Rate Blood Pressure 155/80 H Pulse Oximetry Intake & Output 05/21/18 05/21/18 05/22/18 06:59 18:59 06:59 Intake Total 240 / 240 360 / 360 Output Total 250 / 250 600 / 600 Balance -10 / -10 -240 / -240 Weight 61.1 kg Intake: Oral 240 / 240 360 / 360 Output: Urine 250 / 250 600 / 600 Other: # Voids 3 2 # Incontinent Voids 1 Date of Last Bowel Movement 05/21/18 # Bowel Movements 1 1 - Constitutional no acute distress - Routine HEENT Exam Head: Present: normocephalic, atraumatic - Routine Neck Exam Present: supple. Absent: JVD, carotid bruit - Routine Chest/Breast/Axilla Exam Chest wall: Present: pacemaker. Absent: tenderness - Routine Respiratory Exam Present: CTA bilaterally. Absent: rales, respiratory distress, rhonchi, wheezes , crackles - Routine Cardiovascular Exam Comments: S1 and S2 are audible. 2/6 somewhat harsh/ejection murmur at the left sternal border and right second intercostal space and across the precordium. Faint S4 gallop. - Routine Abdominal Exam Present: soft, normoactive bowel sounds. Absent: tenderness, distended - Routine Extremities Exam Absent: cyanosis, clubbing, edema - Routine Skin Exam Present: intact - Routine Neurological Exam Alert but oriented only to person Results 05/21/18 06:23 05/21/18 06:23 CBC 05/20/18 05/21/18 Range/Units 05:10 06:23 WBC 6.1 5.6 (4.0-11.0) th/mm3 RBC 2.34 L 3.30 L (4.50-5.90) mil/mm3 Hgb 7.6 L 10.5 L D (13.0-17.0) gm/dL Hct 21.7 L 30.2 L (39.0-51.0) % Plt Count 131 L 146 L (150-450) th/mm3 Comprehensive Metabolic Panel 05/20/18 05/20/18 05/21/18 Range/Units 05:10 19:29 06:23 Sodium 137 137 137 (136-145) meq/L Potassium 3.7 3.9 3.6 (3.5-5.1) meq/L Chloride 106 103 105 (98-107) meq/L Carbon Dioxide 24.6 26.2 25.4 (21.0-32.0) meq/L BUN 20 H 19 H 17 (7-18) mg/dL Creatinine 1.01 1.18 1.03 (0.60-1.30) mg/dL Calcium 8.5 8.9 8.5 (8.5-10.1) mg/dL Intake and Output 05/21/18 05/21/18 05/21/18 06:59 14:59 22:59 Intake Total 240 / 240 360 / 360 Output Total 250 / 250 600 / 600 Balance -10 / -10 -240 / -240 Intake: Oral 240 / 240 360 / 360 Output: Urine 250 / 250 600 / 600 Other: # Voids 3 2 # Incontinent Voids 1 Date of Last Bowel Movement 05/21/18 # Bowel Movements 1 1 Weight 61.1 kg Assessment and Plan - Plan #1 syncope/4/sick sinus syndrome/status post permanent pacemaker/paroxysmal A. fib/wide complex tachycardia 2. Hypertension 3. Dementia/acute encephalopathy/history of CVA: Multifactorial. Neurology following. 4. Anemia 5. Chronic kidney disease 6. Right femur intertrochanteric fracture, status post surgical intervention. Plan: Telemetry reviewed and he has intermittent pacing rhythm that appears to be wide -complex however there is some tachycardic episodes and some multifocal ventricular ectopies. Pacemaker will be interrogated first to assess if there was any significant arrhythmia that may have contributed to his syncope upon arrival and also to differentiate the wide-complex tachycardia whether it is atrial with aberrant conduction versus ventricular. Complete set of electrolytes as well as TSH and free T4 levels will be checked. Echocardiogram will be checked to assess his LV systolic function and any significant valve pathology like aortic stenosis. In the meantime continue on carvedilol and increase the dose for better blood pressure control. Further recommendations will follow. Thank you.
[2018-05-21] MEDS: Carvedilol 6.25 MG Tablet PO SCH (22:09)
[2018-05-21] MEDS: Lisinopril 5 MG Tablet PO SCH (22:10)
[2018-05-22] MEDS: Acetaminophen 325 MG Tablet PO PRN ×5 (01:22→22:58)
[2018-05-22 07:37] LABS: Calcium 8.9 mg/dL (8.5-10.1); Carbon Dioxide 25.8 meq/L (21.0-32.0); Potassium 3.5 meq/L (3.5-5.1)
[2018-05-22 07:38] LABS: Magnesium 1.7 mg/dL (1.5-2.5); Phosphorus 2.1 mg/dL (2.5-4.9)
[2018-05-22 07:41] LABS: Free T4 (Free Thyroxine) 1.39 ng/dL (0.76-1.46)
[2018-05-22 07:47] LABS: Thyroid Stimulating Hormone 0.564 uIU/mL (0.358-3.740)
[2018-05-22] MEDS: Carvedilol 6.25 MG Tablet PO SCH ×2 (08:36→21:11)
[2018-05-22] MEDS: Senna/Docusate Sodium 8.6/50 MG Tablet PO SCH ×2 (08:36→21:11)
--- NOTE | 2018-05-22 10:56 | P.PNNEU ---
Subjective Subjective Comments: did not sleep all night delirious Active Medications: Active Medications Acetaminophen (Tylenol) 650 mg PO Q4H PRN PRN Reason: Temp > 100.4 Last Admin: 05/22/18 06:18 Dose: 650 mg Hydrocodone Bitart/Acetaminophen ([place] 5/325) 1 tab PO Q3H PRN PRN Reason: Pain Scale 3-10 Al Hydroxide/Mg Hydroxide (Milk Of Magnesia Liq) 30 ml PO Q12H PRN PRN Reason: Mild Constipation Apixaban (Eliquis) 2.5 mg PO BID [facility] Last Admin: 05/22/18 08:36 Dose: 2.5 mg Bisacodyl (Dulcolax Supp) 10 mg RECTAL DAILY PRN PRN Reason: SEVERE CONSITIPATION Carvedilol (Coreg) 6.25 mg PO BID [facility] Last Admin: 05/22/18 08:36 Dose: 6.25 mg Cyclobenzaprine HCl (Flexeril) 5 mg PO Q8HR [facility] Last Admin: 05/17/18 14:21 Dose: Not Given Donepezil HCl (Aricept) 10 mg PO [facility] Last Admin: 05/21/18 22:09 Dose: 10 mg Enoxaparin Sodium (Lovenox Inj) 40 mg SQ Q24H [facility] Last Admin: 05/17/18 00:57 Dose: 40 mg Hydralazine HCl (Apresoline) 10 mg PO Q8HR PRN PRN Reason: SBP>160, DBP>90 Last Admin: 05/21/18 15:24 Dose: 10 mg Dextrose/Sodium Chloride (D5w/1/2 Ns Inj) 1,000 mls @ 84 mls/hr IV.CONT .[id number] [facility] Last Admin: 05/20/18 08:31 Dose: Not Given Lactulose (Lactulose Liq) 30 ml PO DAILY PRN PRN Reason: SEVERE CONSITIPATION Lisinopril (Prinivil) 5 mg PO [facility] Last Admin: 05/21/18 22:10 Dose: 5 mg Miscellaneous (Pill Splitter) 1 each OTHER UNSCH PRN PRN Reason: SEE LABEL COMMENTS Modafinil (Provigil) 100 mg PO DAILY [facility] Morphine Sulfate (Morphine Inj) 2 mg IV.PUSH Q3H PRN PRN Reason: PAIN 1-10 AND/OR FEVER >101F Last Admin: 05/16/18 20:10 Dose: 2 mg Multivitamins (Theragran) 1 tab PO DAILY [facility] Last Admin: 05/22/18 08:35 Dose: 1 tab Ondansetron HCl (Zofran Inj) 4 mg IV.PUSH Q6H PRN PRN Reason: NAUSEA OR VOMITING Senna/Docusate Sodium (Salma-Colace) 1 tab PO BID [facility] Last Admin: 05/22/18 08:36 Dose: 1 tab Sennosides (Senokot) 17.2 mg PO Q12H PRN PRN Reason: Moderate Constipation Sodium Chloride (Ns Flush) 2 ml IV.FLUSH BID [facility] Last Admin: 05/22/18 08:36 Dose: Not Given Sodium Chloride (Ns Flush) 2 ml IV.FLUSH PRN PRN PRN Reason: FLUSH AFTER USING IV ACCESS Thiamine HCl (Thiamine Inj) 100 mg IM DAILY [facility] Last Admin: 05/21/18 14:39 Dose: Not Given Vitamin D (Vitamin D3) 2,000 unit PO DAILY [facility] Last Admin: 05/22/18 08:35 Dose: 2,000 unit Allergies/Adverse Reactions: Allergies Allergy/AdvReac Type Severity Reaction Status Date / Time No Known Allergies Allergy Verified 05/19/18 13:11 Physical Exam Vital signs: Vital Signs 05/21/18 12:00 05/21/18 15:13 05/21/18 16:00 Temperature 97.5 F L 97.5 F L Pulse Rate 59 L 59 L Respiratory Rate 18 18 Blood Pressure 182/93 H 162/85 H Pulse Oximetry 98 98 05/21/18 16:44 05/21/18 20:00 05/21/18 23:57 Temperature 97.9 F 98 F Pulse Rate 60 64 Respiratory Rate 18 17 Blood Pressure 155/80 H 160/70 H 156/68 H Pulse Oximetry 98 94 L 05/22/18 00:00 05/22/18 04:00 05/22/18 04:14 Temperature 98.3 F Pulse Rate 60 60 63 Respiratory Rate 16 Blood Pressure 141/76 H Pulse Oximetry 96 05/22/18 08:00 Temperature 97.6 F Pulse Rate 59 L Respiratory Rate 18 Blood Pressure 174/119 H Pulse Oximetry 95 Intake & Output 05/21/18 05/22/18 05/22/18 18:59 06:59 18:59 Intake Total 360 / 360 720 / 720 Output Total 600 / 600 Balance -240 / -240 720 / 720 Weight 61.1 kg Intake: Oral 360 / 360 720 / 720 Output: Urine 600 / 600 Other: # Voids 2 # Urine Diapers 3 Date of Last Bowel Movement 05/21/18 05/21/18 # Bowel Movements 1 Weight On Admission 61.1 kg - Constitutional no acute distress - Routine HEENT Exam Head: Present: normocephalic - Routine Neurological Exam awake confused knows not age not oriented toplace says in [facility] ?left vf loss looks to the right hx left arm weakness moves left leg - Urinary Catheter Management Straight Cath placed during this visit: no Condom Cath placed during this visit: no Objective Radiology Results: ct nothing acute?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 Laboratory Results - last 24 hr 05/22/18 05/22/18 06:36 06:36 Sodium 137 Potassium 3.5 Chloride 104 Carbon Dioxide 25.8 Anion Gap 7 BUN 14 Creatinine 1.08 Estimated GFR 65 L Random Glucose 101 Calcium 8.9 Phosphorus 2.1 L Magnesium 1.7 TSH 0.564 Free T4 1.39 Review/Management - Diagnosis (1) Syncope Code(s): R55 - Syncope and collapse Status: Acute Current Visit: No (2) Closed intertrochanteric fracture of right femur Code(s): S72.141A - Displaced intertrochanteric fracture of right femur, initial encounter for closed fracture Status: Acute Current Visit: Yes (3) Encephalopathy Code(s): G93.40 - Encephalopathy, unspecified Status: Acute Current Visit: Yes - Review/Management Plan: will add provigil 100 mg in am tomorrow check f/u ct scan. eliquis (1) Syncope Qualifiers: Syncope type: unspecified Qualified Code(s): R55 - Syncope and collapse (2) Closed intertrochanteric fracture of right femur Qualifiers: Encounter type: subsequent encounter Fracture alignment: nondisplaced Qualified Code(s): S72.144A - Nondisplaced intertrochanteric fracture of right femur, initial encounter for closed fracture
--- NOTE | 2018-05-22 11:17 | ECG ---
Date Performed: 05/22/2018 Time Performed: 09:35:25 PTAGE: 83 years EKG: ELECTRONIC ATRIAL PACEMAKER MODERATE INTRAVENTRICULAR CONDUCTION DELAY ABNORMAL ECG NO PREVIOUS TRACING DOCTOR: Win Patiño Interpretating Date/Time 05/22/2018 11:16:26
[2018-05-22] MEDS ORDERED: Mag Sulf 1 gm/100 ml Premix 100 ML IV.SIG ONE (15:09)
--- NOTE | 2018-05-22 15:10 | P.PNIM ---
Subjective Interval history: Follow-up for acute metabolic encephalopathy, status post fall with right hip fracture, status post right IM nail 2/3: Patient seen and examined, patient more confused and delirious. Did not sleep very much. He appears to be neglecting the left side. Telemetry reviewed, very few episodes of PVCs. Blood pressure intermittently elevated. No fever. Unable to obtain ROS. Son at bedside. Patient requires assistance with feeding, he is eating a little better. Physical Exam Vital signs: Vital Signs 05/21/18 15:13 05/21/18 16:00 05/21/18 16:44 Temperature 97.5 F L Pulse Rate 59 L Respiratory Rate 18 Blood Pressure 162/85 H 155/80 H Pulse Oximetry 98 05/21/18 20:00 05/21/18 23:57 05/22/18 00:00 Temperature 97.9 F 98 F Pulse Rate 60 64 60 Respiratory Rate 18 17 Blood Pressure 160/70 H 156/68 H Pulse Oximetry 98 94 L 05/22/18 04:00 05/22/18 04:14 05/22/18 08:00 Temperature 98.3 F 97.6 F Pulse Rate 60 63 64 Respiratory Rate 16 18 Blood Pressure 141/76 H 174/119 H Pulse Oximetry 96 95 05/22/18 11:40 05/22/18 12:00 Temperature 97.2 F L Pulse Rate 59 L Respiratory Rate 18 18 Blood Pressure 153/97 H Pulse Oximetry 97 Intake & Output 05/21/18 05/22/18 05/22/18 18:59 06:59 18:59 Intake Total 360 / 360 720 / 720 Output Total 600 / 600 Balance -240 / -240 720 / 720 Weight 61.1 kg Intake: Oral 360 / 360 720 / 720 Output: Urine 600 / 600 Other: # Voids 2 # Urine Diapers 3 Date of Last Bowel Movement 05/21/18 05/21/18 # Bowel Movements 1 Weight On Admission 61.1 kg Narrative: General: 83-year-old elderly male, disoriented HEENT extraocular movements are intact, clear oropharyngeal mucosa, no JVD Cardiovascular S1-S2 audible, RRR, soft murmur, no rubs, no gallops Respiratory: clear to auscultation bilaterally Abdomen soft, nontender, nondistended, normal bowel sounds Musculoskeletal: Right hip incision intact. No exudate.BLE 4/5. LUE weaker than RUE. Bilat pedal pulses 2+ Neuro: Patient confused, picking at things in the air, left visual field neglect noted. Right-sided gaze noted. Follows simple commands at times. Speech clear. Urinary Catheter Management Straight: Cath placed during this visit: no Condom: Cath placed during this visit: no Results Labs CBC & Chem 7: 05/21/18 06:23 05/22/18 06:36 Assessment and Plan (1) Syncope: Code(s): R55 - Syncope and collapse Status: Acute (2) Closed intertrochanteric fracture of right femur: Code(s): S72.141A - Displaced intertrochanteric fracture of right femur, initial encounter for closed fracture Status: Acute (3) Encephalopathy: Code(s): G93.40 - Encephalopathy, unspecified Status: Acute Plan This patient is an 83-year-old male with a past medical history of hypertension , dyslipidemia, atrial fibrillation on anticoagulation, sick sinus syndrome, documented AAA, chronic kidney disease, dementia, chronic back pain. Patient presented after suffering a ground-level fall at home Acute metabolic encephalopathy, pt. more lethargic over past 2 days, minimally responsive. Etiology likely multifactorial, post op status, opioid, anesthesia, possibly CVA ? left hemiapnopsia noted Unclear if any seizure disorder He was receiving p.o. Benadryl as well as morphine and Depakote. As per the patient's he was not taking Depakote prior to admission. Depakote, Klonopin, Benadryl have been stopped. -Continue neurochecks -CT head with no acute abnormality. An MRI was ordered however the patient has a pacemaker and cannot get the MRI. -consult Neurology, appreciate Dr. Mccarthy's input. Recommended repeat CT, Thiamine IM daily. -Patient had recent workup in April, echo was done, EF 55-60. Holter done as well, no significant findings -telemetry monitoring -repeat head CT 05/19- no acute findings -EEG mod. encephalopathy B12 level okay -Mentation waxing and waning, today more delirious, did not sleep well, continues with left hemianopsia. -D/W Dr. Castañeda regarding left hemianopsia. She reviewed recent head CT, patient likely with strokes in the past, recommends repeat. Will also start patient on Provigil starting tomorrow. Nonsustained VT, asymptomatic. -Device interrogation done, report reviewed. Electrolytes checked, mag and potassium stable -Started on Coreg 3.125 mg p.o. twice daily Appreciate cardiology input, was seen by Dr. Covington. -D/W rajani. Echo done in Apr. No need to repeat. He increased Coreg. Recommends to maintain BP on the high side and avoid sudden drops as pt. has hx of orthostatic hypotension. Electrolytes reviewed, recommends potassium phosphate 15 mmol and magnesium 1 g, will order. Recommend TEDs He spoke to family and they are agreeable with plan. Right intertrochanteric fracture status post right trochanteric nail 2/ -appreciate ortho input -continue post op care -Lovenox for DVT prophylaxis, will resume Eliquis when patient able to take p.o. -Weightbearing as tolerated, not fully participating in therapy due to mental status. Wound care Bowel regimen -Use Tylenol for now for pain management due to NSAID -ortho cleared for dc. Atrial fibrillation -Eliquis has been started, no longer on Lovenox -Heart rate has been trending up, and SVT noted. -Started on Coreg, increase per cardiology to 6.25 mg p.o. twice daily CKD stage III Serum creatinine is currently at baseline. -Continue to monitor kidney function, avoid nephrotoxic agents. -Creatinine improving Hypertension History of orthostatic BP -Continue with lisinopril Blood pressure has been noted trending up, we will add low-dose Coreg. Will add as needed hydralazine -Monitor blood pressure and adjust medications as necessary Dementia, per neurology, possible Lewy body Continue with donezepil Anemia, hemoglobin trending down, today 7.6 Thrombocytopenia -HH remains same, Hgb 7.6, 1 unit PRBC given 05/20. Hgb today 10.5 -iron profile noted, low iron stores -platelets trending up slowly 131 -no active bleeding noted. Protein calorie malnutrition, patient with very little intake over the last 4-5 days BMI 20.5 Patient at risk for aspiration, he has periods of alertness but mostly has been lethargic and requires assistance with meals -Dietitian consult, input appreciated -Continue with mechanical soft diet -Discussed with family at length, PEG tube is on option. endorses that this is something he would not want and she wants to respect his wishes. -Appetite improving, continue with current diet. Continue with Ensure 3 times daily. -Dec. IVF, pt's eating improving some DVT prophylaxiscontinue Eliquis [facility] following[facility] with [facility]'s family at length, their questions answered in detail. We discussed recommendations per cardiology and urology. Their hope is that patient can at least go to rehab for 1 week and then go to [facility]. They are realistic on what patient will be able to accomplish, they know he is declining. They will consider hospice at some point. Code Status: DNR Discussed Condition With: RN, pt's family Dr. Sorenson, Dr. Castañeda, Dr. Funez Discharge Planning: to SNF poss Thursday Progress Note: Quality VTE Deep Vein Thrombosis/Pulmonary Embolism Present on Admission: No _ (1) Syncope Qualifiers: Encounter type: Syncope type: unspecified Qualified Code(s): R55 - Syncope and collapse (2) Closed intertrochanteric fracture of right femur Qualifiers: Encounter type: subsequent encounter Fracture alignment: nondisplaced Fracture healing: Qualified Code(s): S72.144A - Nondisplaced intertrochanteric fracture of right femur, initial encounter for closed fracture
--- NOTE | 2018-05-22 15:39 | P.PNCA ---
Subjective Interval history: Lying in a stretcher in no apparent distress. Denies chest pain. Denies shortness of breath. Family is at the bedside. Medications and Allergies Active Medications: Active Medications Acetaminophen (Tylenol) 650 mg PO Q4H PRN PRN Reason: Temp > 100.4 Last Admin: 05/22/18 11:10 Dose: 650 mg Hydrocodone Bitart/Acetaminophen ([place] 5/325) 1 tab PO Q3H PRN PRN Reason: Pain Scale 3-10 Al Hydroxide/Mg Hydroxide (Milk Of Magnesia Liq) 30 ml PO Q12H PRN PRN Reason: Mild Constipation Apixaban (Eliquis) 2.5 mg PO BID [facility] Last Admin: 05/22/18 08:36 Dose: 2.5 mg Bisacodyl (Dulcolax Supp) 10 mg RECTAL DAILY PRN PRN Reason: SEVERE CONSITIPATION Carvedilol (Coreg) 6.25 mg PO BID [facility] Last Admin: 05/22/18 08:36 Dose: 6.25 mg Cyclobenzaprine HCl (Flexeril) 5 mg PO Q8HR [facility] Last Admin: 05/17/18 14:21 Dose: Not Given Donepezil HCl (Aricept) 10 mg PO HS [facility] Last Admin: 05/21/18 22:09 Dose: 10 mg Enoxaparin Sodium (Lovenox Inj) 40 mg SQ Q24H [facility] Last Admin: 05/17/18 00:57 Dose: 40 mg Hydralazine HCl (Apresoline) 10 mg PO Q8HR PRN PRN Reason: SBP>160, DBP>90 Last Admin: 05/21/18 15:24 Dose: 10 mg Dextrose/Sodium Chloride (D5w/1/2 Ns Inj) 1,000 mls @ 84 mls/hr IV.CONT .[id number] [facility] Last Admin: 05/20/18 08:31 Dose: Not Given Magnesium Sulfate/Dextrose (Magnesium Sulfate 1 Gm/D5w 100 Ml Premix) 100 mls @ 100 mls/hr IV.SIG ONCE ONE Stop: 05/22/18 16:08 Potassium Phosphate 15 mmol/ (Sodium Chloride) 155 mls @ 38.75 mls/hr IV.SIG ONCE ONE Stop: 05/22/18 20:59 Lactulose (Lactulose Liq) 30 ml PO DAILY PRN PRN Reason: SEVERE CONSITIPATION Lisinopril (Prinivil) 5 mg PO HS [facility] Last Admin: 05/21/18 22:10 Dose: 5 mg Miscellaneous (Pill Splitter) 1 each OTHER UNSCH PRN PRN Reason: SEE LABEL COMMENTS Modafinil (Provigil) 100 mg PO DAILY [facility] Morphine Sulfate (Morphine Inj) 2 mg IV.PUSH Q3H PRN PRN Reason: PAIN 1-10 AND/OR FEVER >101F Last Admin: 05/16/18 20:10 Dose: 2 mg Multivitamins (Theragran) 1 tab PO DAILY [facility] Last Admin: 05/22/18 08:35 Dose: 1 tab Ondansetron HCl (Zofran Inj) 4 mg IV.PUSH Q6H PRN PRN Reason: NAUSEA OR VOMITING Senna/Docusate Sodium (Salma-Colace) 1 tab PO BID [facility] Last Admin: 05/22/18 08:36 Dose: 1 tab Sennosides (Senokot) 17.2 mg PO Q12H PRN PRN Reason: Moderate Constipation Sodium Chloride (Ns Flush) 2 ml IV.FLUSH BID [facility] Last Admin: 05/22/18 08:36 Dose: Not Given Sodium Chloride (Ns Flush) 2 ml IV.FLUSH PRN PRN PRN Reason: FLUSH AFTER USING IV ACCESS Thiamine HCl (Thiamine Inj) 100 mg IM DAILY [facility] Last Admin: 05/22/18 11:07 Dose: 100 mg Vitamin D (Vitamin D3) 2,000 unit PO DAILY [facility] Last Admin: 05/22/18 08:35 Dose: 2,000 unit Allergies Allergy/AdvReac Type Severity Reaction Status Date / Time No Known Allergies Allergy Verified 05/19/18 13:11 Home Medications Medication Instructions Recorded Confirmed Type Adults Multivitamin 1 tab PO DAILY 01/07/18 05/15/18 History apixaban [Eliquis] 2.5 mg PO BID 01/07/18 05/16/18 History benazepril 10 mg PO DAILY 01/07/18 05/16/18 History divalproex 250 mg PO Q OTHER DAY 01/07/18 05/16/18 History donepezil 10 mg PO HS 01/07/18 05/15/18 History hydrocodone-acetaminophen 1 tab PO BID PRN 01/07/18 05/15/18 History cholecalciferol (vitamin D3) 2,000 unit PO DAILY 02/03/18 05/15/18 History [Vitamin D3] Physical Exam Vital signs: Vital Signs 05/21/18 16:00 05/21/18 16:44 05/21/18 20:00 Temperature 97.5 F L 97.9 F Pulse Rate 59 L 60 Respiratory Rate 18 18 Blood Pressure 155/80 H 160/70 H Pulse Oximetry 98 98 05/21/18 23:57 05/22/18 00:00 05/22/18 04:00 Temperature 98 F Pulse Rate 64 60 60 Respiratory Rate 17 Blood Pressure 156/68 H Pulse Oximetry 94 L 05/22/18 04:14 05/22/18 08:00 05/22/18 11:40 Temperature 98.3 F 97.6 F Pulse Rate 63 64 Respiratory Rate 16 18 18 Blood Pressure 141/76 H 174/119 H Pulse Oximetry 96 95 05/22/18 12:00 Temperature 97.2 F L Pulse Rate 59 L Respiratory Rate 18 Blood Pressure 153/97 H Pulse Oximetry 97 Intake & Output 05/21/18 05/22/18 05/22/18 18:59 06:59 18:59 Intake Total 360 / 360 720 / 720 Output Total 600 / 600 Balance -240 / -240 720 / 720 Weight 61.1 kg Intake: Oral 360 / 360 720 / 720 Output: Urine 600 / 600 Other: # Voids 2 # Urine Diapers 3 Date of Last Bowel Movement 05/21/18 05/21/18 # Bowel Movements 1 Weight On Admission 61.1 kg - Constitutional no acute distress - Routine HEENT Exam Head: Present: normocephalic, atraumatic - Routine Neck Exam Present: supple. Absent: JVD - Routine Respiratory Exam Comments: Few rhonchi at the left base. Otherwise clear to auscultation. - Routine Cardiovascular Exam Comments: S1 and S2 are audible. 2/6 systolic murmur at the left sternal border and across the precordium. Faint S4 gallop. - Routine Abdominal Exam Present: soft, normoactive bowel sounds. Absent: tenderness - Routine Extremities Exam Absent: cyanosis, clubbing, edema - Routine Skin Exam Present: intact - Urinary Catheter Management Straight Cath placed during this visit: no Condom Cath placed during this visit: no Results 05/21/18 06:23 05/22/18 06:36 CBC 05/21/18 Range/Units 06:23 WBC 5.6 (4.0-11.0) th/mm3 RBC 3.30 L (4.50-5.90) mil/mm3 Hgb 10.5 L D (13.0-17.0) gm/dL Hct 30.2 L (39.0-51.0) % Plt Count 146 L (150-450) th/mm3 Comprehensive Metabolic Panel 05/20/18 05/21/18 05/22/18 Range/Units 19:29 06:23 06:36 Sodium 137 137 137 (136-145) meq/L Potassium 3.9 3.6 3.5 (3.5-5.1) meq/L Chloride 103 105 104 (98-107) meq/L Carbon Dioxide 26.2 25.4 25.8 (21.0-32.0) meq/L BUN 19 H 17 14 (7-18) mg/dL Creatinine 1.18 1.03 1.08 (0.60-1.30) mg/dL Calcium 8.9 8.5 8.9 (8.5-10.1) mg/dL Intake and Output 05/22/18 05/22/18 05/22/18 06:59 14:59 22:59 Intake Total 720 / 720 Balance 720 / 720 Intake: Oral 720 / 720 Other: # Urine Diapers 3 Date of Last Bowel Movement 05/21/18 Weight 61.1 kg Weight On Admission 61.1 kg Assessment and Plan - Plan #1 syncope/4/sick sinus syndrome/status post permanent pacemaker/paroxysmal A. fib/wide complex tachycardia 2. Hypertension 3. Dementia/acute encephalopathy/history of CVA: Multifactorial. Neurology following. 4. Anemia 5. Chronic kidney disease 6. Right femur intertrochanteric fracture, status post surgical intervention. Plan: Pacemaker interrogated and the wide-complex events are mostly atrial with aberrant conduction/intermittent ventricular pacing. Adding a beta-roney should help.. Continue Coreg. We will allow some permissible degree of hypertension because of his history of autonomic dysfunction and orthostatic hypotension. And lower extremity elastic stockings. Supplement potassium/phosphorus and magnesium.. Echocardiogram will be canceled as he did have a study last month with normal LV systolic function. Discussed with the family. Can be discharged from the cardiac standpoint with follow-up with Dr. Barragan in 2-3 weeks.. Thank you.
--- NOTE | 2018-05-22 16:55 | CT ---
EXAM DATE: 05/22/2018 4:50 PM EST AGE/SEX: 83 years / Male INDICATIONS: Visual disturbance. CLINICAL DATA: This is the patient's initial encounter. Patient reports that signs and symptoms have been present for 1 day and indicates a pain score of 0/10. MEDICAL/SURGICAL HISTORY: Carcinoma, prostatic. Hypertension. Transient ischemic attack. [place] r. neck surgery RADIATION DOSE: 33.08 CTDI (mGy) COMPARISON: [facility] [place], CT HEAD W/O CONTRAST, 05/19/2018. . TECHNIQUE: Axial images of the head were acquired without contrast and after intravenous administrat ion of 93 ml Omnipaque 350 (iohexol) nonionic water-soluble contrast as a single exam dose. Using automated exposure control and adjustment of the mA and/or kV according to patient size, radiation do se was kept as low as reasonably achievable to obtain optimal diagnostic quality images. DICOM forma t image data is available electronically for review and comparison. FINDINGS: Cerebrum: There are large areas of gliosis involving both frontal lobes the right basal ganglia and the deep white matter tracts of the right frontal lobe. Basilar areas of low density involving the hi gh white matter tracks to the posterior right frontal region. The exam is very similar to the previou s study. I don't see any areas of hemorrhage. No sulcal effacement is noted. No extra-axial fluid col lections are identified. Posterior Fossa: The cerebellum and brainstem are intact. The 4th ventricle is midline. The cerebe llopontine angle is unremarkable. Extracranial: The visualized portion of the orbits is intact. Skull: The calvaria is intact. No evidence of skull fracture. Post Contrast: No abnormal areas of parenchymal or dural enhancement. No evidence of blood-brain ba rrier breakdown. CONCLUSION: 1. Areas of gliosis likely related to previous trauma the frontal regions bilaterally and multiple r ight-sided strokes. No abnormal enhancement on today's exam to suggest a mass lesion. No evidence of significant hemorrhage or acute edema. Visualized globes and orbits are unremarkable Electronically signed by: Win Landa MD Board Certified Radiologist 05/22/2018 4:53 PM EST
[2018-05-22] MEDS ORDERED: Potassium Phosphate Inj 15 MMOL in Sodium Chlor 0.9% Inj 150 ML IV.SIG ONE (17:00)
[2018-05-22] MEDS: Lisinopril 5 MG Tablet PO SCH (21:10)
[2018-05-22] MEDS: Dextrose 5%/NaCl 0.45% Inj 1,000 ML IV.CONT SCH (22:43)
[2018-05-23] MEDS: Acetaminophen 325 MG Tablet PO PRN ×3 (06:52→15:22)
[2018-05-23] MEDS: Carvedilol 6.25 MG Tablet PO SCH (08:36)
[2018-05-23] MEDS: Senna/Docusate Sodium 8.6/50 MG Tablet PO SCH (08:37)
[2018-05-23 08:57] LABS: Calcium 8.7 mg/dL (8.5-10.1); Carbon Dioxide 27.1 meq/L (21.0-32.0)
[2018-05-23] MEDS ORDERED: Modafinil 200 MG Tablet PO SCH (09:00)
--- NOTE | 2018-05-23 12:24 | P.PNIM ---
Subjective Interval history: ollow-up for acute metabolic encephalopathy, status post fall with right hip fracture, status post right IM nail /3: Patient seen and examined, was able to sleep a little better last night, mentation continues to wax and wane. Recognizes family at times. Eating fairly well, requires frequent cues to eat and drink fluids. No fever, no acute changes overnight. Telemetry reviewed, minimal ectopy. Family at bedside Physical Exam Vital signs: Vital Signs 05/22/18 19:38 05/23/18 00:00 05/23/18 04:07 Temperature 97.8 F 97.9 F 97.4 F L Pulse Rate 118 H 64 60 Respiratory Rate 17 17 17 Blood Pressure 133/82 150/90 H 118/77 Pulse Oximetry 100 97 100 05/23/18 07:22 05/23/18 08:00 05/23/18 09:30 Temperature 97.6 F Pulse Rate 61 63 Respiratory Rate 18 18 Blood Pressure 120/89 Pulse Oximetry 92 L 05/23/18 11:24 05/23/18 12:00 Temperature 98.1 F Pulse Rate 60 Respiratory Rate 16 16 Blood Pressure 180/95 H Pulse Oximetry 95 Intake & Output 05/22/18 05/23/18 05/23/18 18:59 06:59 18:59 Intake Total 340 / 340 275 / 275 Balance 340 / 340 275 / 275 Weight 61.4 kg Intake: IV 100 / 100 155 / 155 Magnesium Sulfate 1 gm/D5W 100 100 / 100 ml Premix 100 ML @ 100 mls/hr IV.SIG ONCE ONE Rx#:[id number] Potassium Phosphate Inj 15 MMOL 155 / 155 In NS Inj 150 ML @ 38.75 mls/ hr IV.SIG ONCE ONE Rx#:[id number] Oral 240 / 240 120 / 120 Other: # Incontinent Voids 2 2 Date of Last Bowel Movement 05/21/18 05/23/18 05/23/18 # Bowel Movements 0 # Incontinent Bowel Movements 1 Narrative: General: 83-year-old elderly male, disoriented HEENT extraocular movements are intact, clear oropharyngeal mucosa, no JVD Cardiovascular S1-S2 audible, RRR, soft murmur, no rubs, no gallops Respiratory: clear to auscultation bilaterally Abdomen soft, nontender, nondistended, normal bowel sounds Musculoskeletal: Right hip incision intact. No exudate.BLE 4/5. LUE weaker than RUE. Bilat pedal pulses 2+ Neuro: Patient patient confused, oriented to self, at times recognizes family. Follows simple commands. Speech is clear. Right-sided gaze preferred Urinary Catheter Management Straight: Cath placed during this visit: no Condom: Cath placed during this visit: no Results Labs CBC & Chem 7: 05/21/18 06:23 05/23/18 07:58 Imaging Imaging: Impressions Head CT 05/22/18 00:00 CONCLUSION: 1. Areas of gliosis likely related to previous trauma the frontal regions bilaterally and multiple right-sided strokes. No abnormal enhancement on today' s exam to suggest a mass lesion. No evidence of significant hemorrhage or acute edema. Visualized globes and orbits are unremarkable Assessment and Plan (1) Syncope: Code(s): R55 - Syncope and collapse Status: Acute (2) Closed intertrochanteric fracture of right femur: Code(s): S72.141A - Displaced intertrochanteric fracture of right femur, initial encounter for closed fracture Status: Acute (3) Encephalopathy: Code(s): G93.40 - Encephalopathy, unspecified Status: Acute Plan This patient is an 83-year-old male with a past medical history of hypertension , dyslipidemia, atrial fibrillation on anticoagulation, sick sinus syndrome, documented AAA, chronic kidney disease, dementia, chronic back pain. Patient presented after suffering a ground-level fall at home Acute metabolic encephalopathy, pt. more lethargic over past 2 days, minimally responsive. Etiology likely multifactorial, post op status, opioid, anesthesia, possibly CVA ? left hemiapnopsia noted Unclear if any seizure disorder He was receiving p.o. Benadryl as well as morphine and Depakote. As per the patient's he was not taking Depakote prior to admission. Depakote, Klonopin, Benadryl have been stopped. -Continue neurochecks -CT head with no acute abnormality. An MRI was ordered however the patient has a pacemaker and cannot get the MRI. -consult Neurology, appreciate Dr. Mccarthy's input. Recommended repeat CT, Thiamine IM daily. -Patient had recent workup in April, echo was done, EF 55-60. Holter done as well, no significant findings -telemetry monitoring -repeat head CT 05/19- no acute findings -EEG mod. encephalopathy B12 level okay -D/W Dr. Castañeda regarding left hemianopsia. She reviewed recent head CT, patient likely with strokes in the past, recommended repeat. -Started on Provigil per neurology -CT 05/22/2018areas of gliosis likely related to previous trauma the frontal regions bilaterally and multiple right-sided strokes. No abnormal enhancement on today's exam to suggest a mass lesion. Nonsustained VT, asymptomatic. -Device interrogation done, report reviewed. Electrolytes checked, mag and potassium stable -Started on Coreg 3.125 mg p.o. twice daily Appreciate cardiology input, was seen by Dr. Covington. -D/W card. Echo done in Apr. No need to repeat. He increased Coreg. Recommends to maintain BP on the high side and avoid sudden drops as pt. has hx of orthostatic hypotension. Electrolytes reviewed, recommends potassium phosphate 15 mmol and magnesium 1 g, will order. Recommend TEDs He spoke to family and they are agreeable with plan. -Electrolytes reviewed, stable -Less ectopy noted, continue with Coreg Right intertrochanteric fracture status post right trochanteric nail 05/16 -appreciate ortho input -continue post op care -Lovenox for DVT prophylaxis, will resume Eliquis when patient able to take p.o. -Weightbearing as tolerated, not fully participating in therapy due to mental status. Wound care Bowel regimen -Use Tylenol for now for pain management due to NSAID -ortho cleared for dc. Atrial fibrillation with aberrancy -Eliquis has been started, no longer on Lovenox -Heart rate has been trending up, and NSVT noted. -Started on Coreg, increased per cardiology to 6.25 mg p.o. twice daily CKD stage III Serum creatinine is currently at baseline. -Continue to monitor kidney function, avoid nephrotoxic agents. -Creatinine improving Hypertension History of orthostatic BP -Continue with lisinopril Blood pressure has been noted trending up, added low-dose Coreg. Added as needed hydralazine -Monitor blood pressure and adjust medications as necessary -BP better overall, prevent lowering too fast. D/W RN, to repeat manually if > 160 Dementia, per neurology, possible Lewy body Continue with donezepil Anemia, hemoglobin trending down, today 7.6 Thrombocytopenia -HH remains same, Hgb 7.6, 1 unit PRBC given 05/20. Hgb today 10.5 -iron profile noted, low iron stores -platelets trending up slowly 131 -no active bleeding noted. Protein calorie malnutrition, patient with very little intake over the last 4-5 days BMI 20.5 Patient at risk for aspiration, he has periods of alertness but mostly has been lethargic and requires assistance with meals -Dietitian consult, input appreciated -Continue with mechanical soft diet -Discussed with family at length, PEG tube is on option. endorses that this is something he would not want and she wants to respect his wishes. -Appetite improving, continue with current diet. Continue with Ensure 3 times daily. -DC IVF. enc. PO fluids, d/w family DVT prophylaxiscontinue Eliquis [facility] with [facility]'s family at length, their questions answered in detail. We discussed recommendations per cardiology and urology. Their hope is that patient can at least go to rehab for 1 week and then go to [facility]. They are realistic on what patient will be able to accomplish, they know he is declining. They will consider hospice at some point. Cleared per otho and card will d/w neuro if any further recommendations. Likely dc to SNF tomorrow Code Status: DNR Discussed Condition With: RN, pt and family, Dr. Armin SMITH Discharge Planning: to SNF poss Thursday Progress Note: Quality VTE Deep Vein Thrombosis/Pulmonary Embolism Present on Admission: No _ (1) Syncope Qualifiers: Encounter type: Syncope type: unspecified Qualified Code(s): R55 - Syncope and collapse (2) Closed intertrochanteric fracture of right femur Qualifiers: Encounter type: subsequent encounter Fracture alignment: nondisplaced Fracture healing: Qualified Code(s): S72.144A - Nondisplaced intertrochanteric fracture of right femur, initial encounter for closed fracture
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
== END 2018-05-23 18:00 | DRG 480 ==
LOC: NEPE 11:56 → MERGE 14:50 → NEDA 14:50 → N06 17:28
PROVIDERS: ADMIT Internal Medicine; ATTEND Internal Medicine
DX: W18.39XA Other fall on same level, initial encounter; G93.41 Metabolic encephalopathy; Z66 Do not resuscitate; I48.0 Paroxysmal atrial fibrillation; S72.144A Nondisplaced intertrochanteric fracture of right femur, initial encounter for closed fracture; Z85.46 Personal history of malignant neoplasm of prostate; D69.6 Thrombocytopenia, unspecified; E46 Unspecified protein-calorie malnutrition; M54.9 Dorsalgia, unspecified; Z86.73 Personal history of transient ischemic attack (TIA), and cerebral infarction without residual deficits; Z96.653 Presence of artificial knee joint, bilateral; I95.1 Orthostatic hypotension; Z79.02 Long term (current) use of antithrombotics/antiplatelets; G47.50 Parasomnia, unspecified; G31.84 Mild cognitive impairment of uncertain or unknown etiology; H53.47 Heteronymous bilateral field defects; N18.3 Chronic kidney disease, stage 3 (moderate); E78.5 Hyperlipidemia, unspecified; D64.9 Anemia, unspecified; Y92.008 Other place in unspecified non-institutional (private) residence as the place of occurrence of the external cause; Z68.20 Body mass index [BMI] 20.0-20.9, adult; I12.9 Hypertensive chronic kidney disease with stage 1 through stage 4 chronic kidney disease, or unspecified chronic kidney disease; Z95.0 Presence of cardiac pacemaker; G89.29 Other chronic pain
CPT/HCPCS: 36430; 36600; 51798; 70450; 70470; 71010; 71045; 72125; 72170; 73502; 73552; 76000; 76937; 80048; 80053; 81001; 82140; 82550; 82552; 82607; 82805; 83540; 83550; 83735; 84100; 84132; 84439; 84443; 84484; 85025; 85027; 85610; 85651; 85652; 85730; 86140; 86850; 86900; 86901; 86923; 90761; 90774; 90775; 90784; 92526; 92610; 93005; 95819; 96361; 96374; 96375; 97110; 97162; 97530; 99285; C1713; C8952; G0195; J0690; J1580; J1650; J1885; J1940; J2270; J2405; J3411; J3475; J7030; J7040; J7050; P9016; Q9967